=== PATIENT | female | born 1975 | race African-American/Black ===

== ENCOUNTER 2016-06-05 15:44 | Emergency (ER) | payer BC, OTHER ==
[2016-06-05 16:00] VITALS: TEMP 98.2; BMI 26.6
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
[2016-06-05] MEDS ORDERED: IBUPROFEN 600 MG TABLET (FP) PO ONE ×2 (16:33→17:13)
[2016-06-05] MEDS ORDERED: OXYCODONE/APAP 5/325MG COMBO TABLET PO ONE (16:33)
[2016-06-05] MEDS ORDERED: METHOCARBAMOL 500 MG TABLET PO ONE (16:33)
[2016-06-05] MEDS ORDERED: METHOCARBAMOL 500 MG TABLET ONE (17:13)
[2016-06-05] MEDS ORDERED: OXYCODONE/APAP 5/325MG COMBO TABLET ONE (17:13)
[2016-06-05 20:31] VITALS: BP 133/78; PULSE 85
== END 2016-06-05 20:31 | disposition home or self-care (01) ==
LOC: JER 15:44
DX: S92.355A Nondisplaced fracture of fifth metatarsal bone, left foot, initial encounter for closed fracture (principal); G44.309 Post-traumatic headache, unspecified, not intractable; S09.8XXA Other specified injuries of head, initial encounter; Y04.2XXA Assault by strike against or bumped into by another person, initial encounter; Y93.89 Activity, other specified; Y92.218 Other school as the place of occurrence of the external cause; Y99.0 Civilian activity done for income or pay; W10.8XXA Fall (on) (from) other stairs and steps, initial encounter; I10 Essential (primary) hypertension; E11.9 Type 2 diabetes mellitus without complications; Z79.84 Long term (current) use of oral hypoglycemic drugs; J45.909 Unspecified asthma, uncomplicated; K21.9 Gastro-esophageal reflux disease without esophagitis
CPT/HCPCS: 70450-TC; 72100-TC; 72125-TC; 73523-TC; 73610-TC-LT; 73630-TC-LT; 84703; 99284-25

== ENCOUNTER 2017-01-29 12:11 | Emergency (ER) | payer BC ==
[2017-01-29 12:17] VITALS: BMI 25.0
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
[2017-01-29] MEDS ORDERED: KETOROLAC TROMETHAMINE 30 MG/1 ML VIAL IVPUSH ONE (13:30)
[2017-01-29] MEDS ORDERED: SODIUM CHLORIDE 1,000 ML IV STA (13:30)
[2017-01-29] MEDS ORDERED: MECLIZINE HCL 25 MG TABLET (FP) PO ONE (13:30)
[2017-01-29] MEDS ORDERED: MECLIZINE HCL 25 MG TABLET (FP) ONE (13:53)
[2017-01-29] MEDS ORDERED: KETOROLAC TROMETHAMINE 30 MG/1 ML VIAL ONE (13:54)
[2017-01-29 13:56] LABS: BASOPHIL 1.2 % (0-2.0); EOSINOPHIL 1.1 % (0-4.5); MCH 21.4 pg (25.7-33.7); MCHC 30.6 g/dl (32.0-36.0); MEAN CELL VOLUME 69.9 fl (80-96); MEAN PLT VOLUME 6.6 fl (7.5-11.1); NEUTROPHILS 63.2 % (42.8-82.8); PLATELET COUNT 465 K/MM3 (134-434); RDW 18.2 % (11.6-15.6); WHITE BLOOD COUNT 11.6 K/mm3 (4.0-10.0)
[2017-01-29 14:24] LABS: ANION GAP 7 (8-16); BILIRUBIN,TOTAL 0.6 mg/dL (0.2-1.0); CALCIUM 8.8 mg/dL (8.5-10.1); CO2 27 mmol/L (21-32); CREATININE 0.8 mg/dL (0.55-1.02); GLUCOSE,RANDOM 83 mg/dL (74-106); SGOT/AST 16 U/L (15-37); SGPT/ALT 18 U/L (12-78); TOT PROT 7.8 g/dl (6.4-8.2)
[2017-01-29 14:25] LABS: ALK PHOS 79 U/L (45-117)
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
[2017-01-29 15:34] LABS: ANISOCYTOSIS 1+; HYPOCHROMIA 1+; MACROCYTOSIS FEW; MICROCYTOSIS 1+
[2017-01-29 15:35] LABS: ACANTHOCYTES FEW; OVALOCYTE 1+
[2017-01-29] MEDS ORDERED: diazePAM 5 MG TABLET PO ONE (16:48)
[2017-01-29] MEDS ORDERED: diazePAM 5 MG TABLET ONE (16:54)
[2017-01-29 17:05] LABS: URINE APPEARANCE CLEAR; URINE BILIRUBIN NEGATIVE (NEGATIVE); URINE BLOOD NEGATIVE (NEGATIVE); URINE COLOR STRAW; URINE GLUCOSE (UA) NEGATIVE (NEGATIVE); URINE KETONE NEGATIVE (NEGATIVE); URINE NITRITE NEGATIVE (NEGATIVE); URINE PROTEIN NEGATIVE (NEGATIVE); URINE UROBILINOGEN NEGATIVE mg/dL (0.2-1.0)
[2017-01-29 18:01] LABS: TROPONIN I < 0.02 ng/ml (0.00-0.05)
[2017-01-29 18:02] LABS: CPK 230 IU/L (26-192)
[2017-01-29 18:39] LABS: URINE LEUK ESTERASE Negative (NEGATIVE)
[2017-01-29 18:59] VITALS: BP 129/70; PULSE 78; TEMP 98.5
== END 2017-01-29 19:12 | disposition home or self-care (01) ==
LOC: JER 12:11
PROC: 3E0333Z Introduction of Anti-inflammatory into Peripheral Vein, Percutaneous Approach (ICD-10-PCS; principal; 2017-01-29)
PROC: 3E0337Z Introduction of Electrolytic and Water Balance Substance into Peripheral Vein, Percutaneous Approach (ICD-10-PCS; 2017-01-29)
DX: H81.399 Other peripheral vertigo, unspecified ear (principal); G56.00 Carpal tunnel syndrome, unspecified upper limb; S39.012A Strain of muscle, fascia and tendon of lower back, initial encounter; G89.29 Other chronic pain; I10 Essential (primary) hypertension; E11.9 Type 2 diabetes mellitus without complications; J45.909 Unspecified asthma, uncomplicated; F17.210 Nicotine dependence, cigarettes, uncomplicated; Z79.84 Long term (current) use of oral hypoglycemic drugs; X58.XXXA Exposure to other specified factors, initial encounter; Y93.89 Activity, other specified; Y92.9 Unspecified place or not applicable
CPT/HCPCS: 36415; 70450-TC; 71020-TC; 80053; 81003; 82550; 82553; 84484; 84703; 85025; 87086; 99283-25

== ENCOUNTER 2017-02-11 14:17 | Emergency (ER) | payer BC ==
[2017-02-11 14:34] VITALS: BP 132/88; PULSE 93; TEMP 98.3; BMI 27.6
[2017-02-11] MEDS ORDERED: PHENAZOPYRIDINE HCL 100 MG TABLET (FP) PO ONE (16:36)
[2017-02-11] MEDS ORDERED: PHENAZOPYRIDINE HCL 100 MG TABLET (FP) ONE (16:37)
[2017-02-11 16:43] LABS: URINE APPEARANCE CLOUDY; URINE BILIRUBIN NEGATIVE (NEGATIVE); URINE BLOOD 1+ (NEGATIVE); URINE COLOR YELLOW; URINE GLUCOSE (UA) NEGATIVE (NEGATIVE); URINE KETONE NEGATIVE (NEGATIVE); URINE NITRITE POSITIVE (NEGATIVE); URINE UROBILINOGEN NEGATIVE mg/dL (0.2-1.0)
--- NOTE | 2017-02-11 16:43 | PDOC ---
History of Present Illness - General Chief Complaint: Pain, Acute Stated Complaint: ABD PAIN Time Seen by Provider: 02/11/17 15:58 History Source: Patient Exam Limitations: No Limitations - History of Present Illness Travel History: No Initial Comments: 02/11/17 16:40 41 yr female with c/o lower abd pain and dysuria for 2 days no fever no chills no back pain or vomiting. pt has had this in the past. Pt has DM . Quality: reports: fullness, throbbing Pain Radiation: reports: no radiation Past History - Past Medical History Allergies/Adverse Reactions: Allergies Allergy/AdvReac Type Severity Reaction Status Date / Time No Known Allergies Allergy Verified 02/11/17 14:29 Home Medications: Ambulatory Orders Metformin HCl [Glucophage -] 500 mg PO BID 02/03/13 Lisinopril 10 mg PO DAILY 07/22/15 Fluticasone Propionate [Flovent Diskus] 50 mcg IH DAILY 06/05/16 Diazepam [Valium] 2 mg PO BID PRN #14 tablet MDD 4 mg 01/29/17 Meclizine HCl [Antivert -] 25 mg PO TID PRN #21 tablet 01/29/17 Cephalexin Monohydrate [Keflex -] 500 mg PO BID #14 capsule 02/11/17 Phenazopyridine HCl [Pyridium] 200 mg PO TID #6 tablet 02/11/17 Asthma: Yes COPD: No Diabetes: Yes GI Disorders: Yes (GERD) HTN: Yes - Immunization History Immunization Up to Date: Yes - Suicide/Smoking/Psychosocial Hx Smoking Status: Yes Smoking History: Current every day smoker Have you smoked in the past 12 months: Yes Number of Cigarettes Smoked Daily: 7 Information on smoking cessation initiated: No 'Breaking Loose' booklet given: 02/07/15 Hx Alcohol Use: No Drug/Substance Use Hx: No Substance Use Type: Alcohol Review of Systems - Review of Systems Able to Perform ROS?: Yes Is the patient limited [place]an proficient: Yes : Yes: Symptoms Reported *Physical Exam - Vital Signs Last Vital Signs Temp Pulse Resp BP Pulse Ox 98.3 F 93 H 18 132/88 97 02/11/17 14:29 02/11/17 14:29 02/11/17 14:29 02/11/17 14:29 02/11/17 14:29 - Physical Exam General Appearance: Yes: Nourished, Appropriately Dressed HEENT: positive: EOMI, STONEY Neck: positive: Supple Respiratory/Chest: positive: Lungs Clear, Normal Breath Sounds Cardiovascular: positive: Regular Rhythm, Regular Rate Female Pelvic Exam: positive: other (deferred no vaginal symptoms) Gastrointestinal/Abdominal: positive: Normal Bowel Sounds, Tender (suprapubic area ), Soft Lymphatic: negative: Adenopathy Musculoskeletal: positive: Normal Inspection Extremity: positive: Normal Capillary Refill, Normal Inspection, Normal Range of Motion. negative: Tender Integumentary: positive: Normal Color, Dry, Warm, Other Neurologic: positive: Fully Oriented, Alert, Normal Mood/Affect, Normal Response , Motor Strength 5/5 Medical Decision Making - Medical Decision Making 02/11/17 16:47 cc: 2 days urianry urgency burning and suprapubic discomfort LMP last week neg chills neg vomiting or diarrhea 02/11/17 17:04 urine positive will treat for UTI with keflex 7 days pt is afebrile and understands the dc plan all questions asked and answered. 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
[2017-02-11 16:45] LABS: URINE PROTEIN 2+ (NEGATIVE)
[2017-02-11 16:48] LABS: URINE BACTERIA RARE /hpf (NONE SEEN); URINE MUCUS RARE; URINE RBC 21; URINE WBC 1834; YEAST FEW
[2017-02-11 19:42] LABS: URINE LEUK ESTERASE 3+ (NEGATIVE)
== END 2017-02-11 17:09 | disposition home or self-care (01) ==
LOC: JERFT 14:17
DX: N39.0 Urinary tract infection, site not specified (principal); I10 Essential (primary) hypertension; E11.9 Type 2 diabetes mellitus without complications; Z79.84 Long term (current) use of oral hypoglycemic drugs; J45.909 Unspecified asthma, uncomplicated; K21.9 Gastro-esophageal reflux disease without esophagitis; F17.210 Nicotine dependence, cigarettes, uncomplicated
CPT/HCPCS: 36415; 81003; 81015; 84703; 87086; 87186; 87491; 87591; 99281-25

== ENCOUNTER 2017-07-16 11:16 | Emergency (ER) | payer BC ==
[2017-07-16 11:32] VITALS: BP 138/76; PULSE 96; TEMP 98.7; BMI 29.0
[2017-07-16] MEDS ORDERED: IBUPROFEN 400 MG TABLET (FP) PO ONE ×2 (12:11→12:13)
--- NOTE | 2017-07-16 12:11 | PDOC ---
History of Present Illness - General Chief Complaint: Cold Symptoms Stated Complaint: COLD SYMPTOMS Time Seen by Provider: 07/16/17 11:37 History Source: Patient - History of Present Illness Timing/Duration: reports: yesterday Associated Symptoms: reports: fever/chills, headache, muscle aches. denies: cough, shortness of breath, wheezing Past History - Past Medical History Allergies/Adverse Reactions: Allergies Allergy/AdvReac Type Severity Reaction Status Date / Time No Known Allergies Allergy Verified 07/16/17 11:34 Home Medications: Ambulatory Orders metFORMIN HCL [Glucophage -] 500 mg PO BID 02/03/13 Lisinopril 10 mg PO DAILY 07/22/15 Fluticasone Propionate [Flovent Diskus] 50 mcg IH DAILY 06/05/16 Diazepam [Valium] 2 mg PO BID PRN #14 tablet MDD 4 mg 01/29/17 Meclizine HCl [Antivert -] 25 mg PO TID PRN #21 tablet 01/29/17 Asthma: Yes COPD: No Diabetes: Yes GI Disorders: Yes (GERD) HTN: Yes - Immunization History Immunization Up to Date: Yes - Suicide/Smoking/Psychosocial Hx Smoking Status: Yes Smoking History: Never smoked Have you smoked in the past 12 months: Yes Number of Cigarettes Smoked Daily: 7 Information on smoking cessation initiated: No 'Breaking Loose' booklet given: 02/07/15 Hx Alcohol Use: No Drug/Substance Use Hx: No Substance Use Type: Alcohol Respiratory Specific PMHX - Complaint Specific PMHX Angina: No Bronchitis: Yes Pneumonia: No Pulmonary Embolus: No TB (Tuberculosis): No Review of Systems - Review of Systems Constitutional: Yes: Fever, Malaise HEENTM: No: Ear Pain, Throat Pain Respiratory: No: Cough, Shortness of Breath ABD/GI: No: Diarrhea, Nausea, Vomiting Neurological: Yes: Headache. No: Dizziness *Physical Exam - Vital Signs Last Vital Signs Temp Pulse Resp BP Pulse Ox 98.7 F 96 H 16 138/76 100 07/16/17 11:29 07/16/17 11:29 07/16/17 11:29 07/16/17 11:29 07/16/17 11:29 - Physical Exam General Appearance: Yes: Appropriately Dressed HEENT: positive: Normal Voice Neck: positive: Supple. negative: Lymphadenopathy (R), Lymphadenopathy (L) Respiratory/Chest: positive: Lungs Clear, Normal Breath Sounds. negative: Respiratory Distress Cardiovascular: positive: Regular Rate, S1, S2 Integumentary: positive: Dry, Warm Neurologic: positive: Fully Oriented, Alert, Normal Mood/Affect Medical Decision Making - Medical Decision Making 07/16/17 12:09 42-year-old female, history of hypertension, asthma and diabetes, here with malaise with body aches and low-grade fever that started yesterday. No cough, shortness of breath, headache, dizziness, neck pain, nausea, vomiting or diarrhea. 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 No known sick contacts. Patient appears uncomfortable but stable with unremarkable exam otherwise. Most likely viral syndrome. Rule out influenza 07/16/17 12:46 Flu negative. Dc with supportive tx *DC/Admit/Observation/Transfer Diagnosis at time of Disposition: Viral syndrome - Discharge Dispostion Disposition: HOME Condition at time of disposition: Good - Referrals Referrals: Karina Gomez [Primary Care Provider] - - Patient Instructions Printed Discharge Instructions: DI for Viral Syndrome Additional Instructions: Your flu test was negative. You most likely have a viral illness Rest, drink fluids and take tylenol or motrin for pain - Post Discharge Activity Forms/Work/School Notes: Back to Work
== END 2017-07-16 12:49 | disposition home or self-care (01) ==
LOC: JERFT 11:16
DX: B34.9 Viral infection, unspecified (principal); I10 Essential (primary) hypertension; J45.909 Unspecified asthma, uncomplicated; E11.9 Type 2 diabetes mellitus without complications
CPT/HCPCS: 87804; 99281-25

== ENCOUNTER 2017-12-23 15:02 | Emergency (ER) | payer BC ==
--- NOTE | 2017-12-23 15:12 | PDOC ---
Rapid Medical Evaluation Time Seen by Provider: 12/23/17 15:06 Medical Evaluation: Allergies Allergy/AdvReac Type Severity Reaction Status Date / Time No Known Allergies Allergy Verified 12/23/17 15:06 12/23/17 15:07 Pt presents for chest pain starting one hour ago. States that the pain came out of know where and she is now having tingling in her R hand. Admits to palpitations. States she is supposed to take lisinopril, however she ran out of the medication a month ago. Denies SOB, Difficulty breathing,nausea, and vomiting Exam: RRR, Lungs CTAB Orders: Labs, EKG, CXR Pt to proceed to ED for further evaluation Discharge Disposition - Diagnosis Chest pain - Referrals - Patient Instructions - Post Discharge Activity
[2017-12-23 15:13] VITALS: BMI 30.8
[2017-12-23 15:44] LABS: BASO % 0.8 % (0-2.0); EOS % 1.3 % (0-4.5); HEMATOCRIT 35.9 % (32.4-45.2); LYMPH % 26.6 % (8-40); MCH 21.4 pg (25.7-33.7); MCHC 30.8 g/dl (32.0-36.0); MEAN CELL VOLUME 69.6 fl (80-96); MEAN PLT VOLUME 6.8 fl (7.5-11.1); MONO % 12.4 % (3.8-10.2); NEUT % 58.9 % (42.8-82.8); PLATELET COUNT 512 K/MM3 (134-434); RBC 5.16 M/mm3 (3.60-5.2); RDW 19.2 % (11.6-15.6); WHITE BLOOD COUNT 11.3 K/mm3 (4.0-10.0)
[2017-12-23] MEDS ORDERED: LISINOPRIL 10 MG TABLET (FP) PO ONE (15:51)
[2017-12-23] MEDS ORDERED: LISINOPRIL 5 MG TABLET (FP) ONE (15:55)
[2017-12-23 15:58] LABS: INR 1.02 (0.83-1.09); PROTHROMBIN TIME (PATIENT) 11.5 SEC (9.7-13.0)
--- NOTE | 2017-12-23 15:58 | PDOC ---
History of Present Illness - General Chief Complaint: Chest Pain Stated Complaint: CHEST PAIN /BLOOD PRESSURE Time Seen by Provider: 12/23/17 15:06 History Source: Patient Exam Limitations: Clinical Condition - History of Present Illness Initial Comments: 12/23/17 15:51 Patient with history of hypertension, diabetes and asthma present with complain of midsternal chest pain since an hour ago and feeling of tingling sensation in bilateral hands and feet. Patient taking metformin for diabetes and was supposed to be taking lisinopril for hypertension but has not taken over month due to running out of medication. Patient reported mild palpitation which is improving. Patient denies dizziness, nausea, vomiting, sweats, lightheadedness. Timing/Duration: 1 hour Past History - Past Medical History Allergies/Adverse Reactions: Allergies Allergy/AdvReac Type Severity Reaction Status Date / Time No Known Allergies Allergy Verified 12/23/17 15:06 Home Medications: Ambulatory Orders metFORMIN HCL [Glucophage -] 500 mg PO BID 02/03/13 Fluticasone Propionate [Flovent Diskus] 50 mcg IH DAILY 06/05/16 Ibuprofen 800 mg PO Q8H PRN #20 tablet 12/23/17 Lisinopril [Prinivil] 10 mg PO DAILY 30 Days #30 tablet 12/23/17 Asthma: Yes COPD: No DVT: No Diabetes: Yes GI Disorders: Yes (GERD) HTN: Yes - Immunization History Immunization Up to Date: Yes - Suicide/Smoking/Psychosocial Hx Smoking Status: Yes Smoking History: Current some day smoker Have you smoked in the past 12 months: No Number of Cigarettes Smoked Daily: 7 Information on smoking cessation initiated: Yes 'Breaking Loose' booklet given: 02/07/15 Hx Alcohol Use: No Drug/Substance Use Hx: No Substance Use Type: Alcohol Review of Systems - Review of Systems Able to Perform ROS?: Yes Is the patient limited Urdu proficient: No Constitutional: No: Malaise, Weakness Respiratory: No: Symptoms reported, Shortness of Breath Cardiac (ROS): Yes: Chest Pain (mid sternum), Palpitations. No: Irregular Heart Rate, Lightheadedness, Syncope, Chest Tightness ABD/GI: No: Nausea, Vomiting Neurological: No: Headache, Weakness, Dizziness All Other Systems: Reviewed and Negative *Physical Exam - Vital Signs Last Vital Signs Temp Pulse Resp BP Pulse Ox 98.2 F 77 20 167/77 100 12/23/17 15:09 12/23/17 15:09 12/23/17 15:09 12/23/17 15:09 12/23/17 15:09 - Physical Exam Comments: 12/23/17 15:54 GENERAL: Well developed, well nourished. Awake and alert. No acute distress. HEENT: Normocephalic, atraumatic. PERRLA, EOMI. No conjunctival pallor. Sclera are non- icteric. Moist mucous membranes. Oropharynx is clear. NECK: Supple. Full ROM. No JVD. Carotid pulses 2+ and symmetric, without bruits. No thyromegaly. No lymphadenopathy. CARDIOVASCULAR: Moderate reproducible tenderness to upper sternum and right second intercostal space. Regular rate and rhythm. No murmurs, rubs, or gallops. Distal pulses are 2+ and symmetric. PULMONARY: No evidence of respiratory distress. Lungs clear to auscultation bilaterally. No wheezing, rales or rhonchi. ABDOMINAL: Soft. Non-tender. Non-distended. No rebound or guarding. No organomegaly. Normoactive bowel sounds. SKIN: Warm and dry. Normal capillary refill. No rashes. No jaundice. NEUROLOGICAL: Alert, awake, appropriate. Gait is normal without ataxia. PSYCHIATRIC: Cooperative. Good eye contact. Appropriate mood and affect. General Appearance: Yes: Nourished, Appropriately Dressed. No: Apparent Distress ED Treatment Course - LABORATORY CBC & Chemistry Diagram: 12/23/17 15:24 12/23/17 15:24 - ADDITIONAL ORDERS Additional order review: 12/23/17 15:24 RBC 5.16 MCV 69.6 L MCHC 30.8 L RDW 19.2 H MPV 6.8 L Neutrophils % 58.9 Lymphocytes % 26.6 Monocytes % 12.4 H Eosinophils % 1.3 Basophils % 0.8 Medical Decision Making - Medical Decision Making 12/23/17 15:56 Patient with history of diabetes on metformin, hypertension on lisinopril and asthma presenting with complain of midsternal chest pain since an hour. Patient has been noncompliant with hypertension medication due to running out of meds a month ago. Exam with evidence of acute distress and normal cardiac exam and reproducible sternal chest wall pain. EKG done showing normal sinus rhythm. Cardiac labs sent. Chest x-ray ordered. Lisinopril 10 mg by mouth ordered for blood pressure control. Treat based on lab and imaging results 12/23/17 16:34 tropins negative. CBC/CMP labs with no acute findings. CXR with no acute pathology. will repeat cardiac labs in 3-4hrs and dispo home if negative as symptom likely costochondritis 12/23/17 19:55 repeat tropinins negative. patient up and eating with no symptoms. stable for home discharge with strict follow-up *DC/Admit/Observation/Transfer Diagnosis at time of Disposition: Costochondral chest pain Chest pain Qualifiers: Chest pain type: intercostal pain Qualified Code(s): R07.82 - Intercostal pain Hypertension Qualifiers: Hypertension type: essential hypertension Qualified Code(s): I10 - Essential ( primary) hypertension - Discharge Dispostion Disposition: HOME Condition at time of disposition: Stable Decision to Admit order: No - Prescriptions Prescriptions: Ibuprofen 800 mg PO Q8H PRN #20 tablet PRN Reason: pain Lisinopril [Prinivil] 10 mg PO DAILY 30 Days #30 tablet - Referrals Referrals: Elias Patricio MD [Staff Physician] - - Patient Instructions Printed Discharge Instructions: DI for Atypical Chest Pain, DI for Chest Pain Additional Instructions: Your chest x-ray and labs was negative. Symptoms is likely from muscle pain. Take prescribed medication as needed for pain. Come back to the emergency room if worsening chest pain, sweating, dizziness, shortness of breath or worsening numbness and tingling sensation. Follow-up with referred for reassessment as soon as possible - Post Discharge Activity
[2017-12-23 16:03] LABS: HCG,QUALITATIVE URINE Negative
[2017-12-23 16:06] LABS: ALBUMIN 4.3 g/dl (3.4-5.0); ALK PHOS 100 U/L (45-117); ANION GAP 9 MMOL/L (8-16); BILIRUBIN,TOTAL 0.4 mg/dL (0.2-1); BLOOD UREA NITROGEN 8 mg/dL (7-18); CALCIUM 9.6 mg/dL (8.5-10.1); CHLORIDE 104 mmol/L (98-107); CO2 26 mmol/L (21-32); CREATININE 1.1 mg/dL (0.55-1.3); GLUCOSE,RANDOM 81 mg/dL (74-106); MAGNESIUM 2.2 mg/dL (1.8-2.4); POTASSIUM 4.3 mmol/L (3.5-5.1); SGOT/AST 19 U/L (15-37); SGPT/ALT 23 U/L (13-61); SODIUM 138 mmol/L (136-145); TOT PROT 8.5 g/dl (6.4-8.2)
--- NOTE | 2017-12-23 16:22 | PDOC ---
*Physical Exam - Vital Signs Last Vital Signs Temp Pulse Resp BP Pulse Ox 98.2 F 79 16 131/85 97 12/23/17 15:09 12/23/17 16:01 12/23/17 16:01 12/23/17 16:01 12/23/17 16:01 - Physical Exam General Appearance: Yes: Appropriately Dressed. No: Apparent Distress Heart Score/ECG Review - History History: Slightly suspicious - Electrocardiogram EKG: Normal - Age Age: </= 45 - Risk Factors Risk Factors Heart Score: Yes Hx Diabetes, Yes Positive family hx of cardiac disease Based on the list above the patient has:: 1-2 risk factors - Troponin Troponin: </= normal limit - Score Heart Score - Total: 1 ED Treatment Course - LABORATORY CBC & Chemistry Diagram: 12/23/17 15:24 12/23/17 15:24 - ADDITIONAL ORDERS Additional order review: Laboratory Results 12/23/17 12/23/17 12/23/17 15:39 15:24 15:24 PT with INR INR Sodium 138 Potassium 4.3 Chloride 104 Carbon Dioxide 26 Anion Gap 9 BUN 8 Creatinine 1.1 Creat Clearance w eGFR 53.96 Random Glucose 81 Calcium 9.6 Magnesium 2.2 Total Bilirubin 0.4 AST 19 ALT 23 Alkaline Phosphatase 100 Creatine Kinase 285 H Troponin I < 0.02 Total Protein 8.5 H Albumin 4.3 Urine HCG, Qual Negative 12/23/17 15:24 PT with INR 11.50 INR 1.02 Sodium Potassium Chloride Carbon Dioxide Anion Gap BUN Creatinine Creat Clearance w eGFR Random Glucose Calcium Magnesium Total Bilirubin AST ALT Alkaline Phosphatase Creatine Kinase Troponin I Total Protein Albumin Urine HCG, Qual 12/23/17 15:24 RBC 5.16 MCV 69.6 L MCHC 30.8 L RDW 19.2 H MPV 6.8 L Neutrophils % 58.9 Lymphocytes % 26.6 Monocytes % 12.4 H Eosinophils % 1.3 Basophils % 0.8 - Medications Given in the ED: ED Medications Discontinued Medications Generic Name Dose Route Start Last Admin Trade Name Freq PRN Reason Stop Dose Admin Lisinopril 10 mg 12/23/17 15:51 12/23/17 16:02 Prinivil PO 12/23/17 15:52 10 mg ONCE ONE Administration Medical Decision Making - Medical Decision Making 12/23/17 16:21 42F with low risk atypical chest pain r/o acs, pna, PE less likely PERC negative will not pursue PE workup f/u labs including troponin Troponin neg x1 If neg x2 dc home with routine follow up 12/23/17 18:03 *DC/Admit/Observation/Transfer Diagnosis at time of Disposition: Costochondral chest pain Chest pain Qualifiers: Chest pain type: intercostal pain Qualified Code(s): R07.82 - Intercostal pain Hypertension Qualifiers: Hypertension type: essential hypertension Qualified Code(s): I10 - Essential ( primary) hypertension - Discharge Dispostion Disposition: HOME Condition at time of disposition: Stable - Referrals - Patient Instructions Printed Discharge Instructions: DI for Atypical Chest Pain, DI for Chest Pain - Post Discharge Activity
[2017-12-23 16:55] LABS: URINE APPEARANCE CLEAR; URINE BILIRUBIN NEGATIVE (<2.0 mg/dL); URINE COLOR COLORLESS; URINE GLUCOSE (UA) NEGATIVE (NEGATIVE); URINE KETONE NEGATIVE (NEGATIVE); URINE LEUK ESTERASE NEGATIVE (NEGATIVE); URINE NITRITE NEGATIVE (NEGATIVE); URINE PROTEIN NEGATIVE (NEGATIVE); URINE UROBILINOGEN NEGATIVE mg/dL (0.2-1.0)
[2017-12-23 18:32] VITALS: BP 128/93; PULSE 83; TEMP 98.9
[2017-12-23 20:35] LABS: ANISOCYTOSIS 3+
--- NOTE | 2017-12-24 11:41 | EKG ---
Test Reason : Blood Pressure : / mmHG Vent. Rate : 067 BPM Atrial Rate : 067 BPM P-R Int : 132 ms QRS Dur : 084 ms QT Int : 350 ms P-R-T Axes : 040 068 054 degrees QTc Int : 369 ms NORMAL SINUS RHYTHM CANNOT RULE OUT ANTERIOR INFARCT , AGE UNDETERMINED ABNORMAL ECG WHEN COMPARED WITH ECG OF 23-JUN-2013 19:16, T WAVE INVERSION NO LONGER EVIDENT IN INFERIOR LEADS Confirmed by LISSET CAMPBELL, CHRISTIE ([id number]) on 12/24/2017 11:41:41 AM Referred By: Confirmed By:CHRISTIE DARLING MD
== END 2017-12-23 20:01 | disposition home or self-care (01) ==
LOC: JER 15:02
DX: R07.82 Intercostal pain (principal); I10 Essential (primary) hypertension; E11.9 Type 2 diabetes mellitus without complications; Z79.84 Long term (current) use of oral hypoglycemic drugs; J45.909 Unspecified asthma, uncomplicated
CPT/HCPCS: 36415; 71046-TC-FY; 80053; 81003; 82550; 82553; 83735; 84484; 84703; 85025; 85610; 93005; 93010; 99285-25

== ENCOUNTER 2018-02-03 11:28 | Emergency (ER) | payer BC ==
[2018-02-03 11:58] VITALS: BP 108/62; PULSE 94; TEMP 98.6; BMI 28.7
[2018-02-03] MEDS ORDERED: DEXAMETHASONE LIQUID 0.5 MG/5 ML 240 ML BULK BOTTLE PO ONE (12:51)
[2018-02-03] MEDS: ALBUTEROL SO4 2.5/IPRATROPIUM 0.5 INH SOL 3 ML VIAL.NEB. NEB SCH ×2 (12:52→13:25)
[2018-02-03] MEDS ORDERED: DEXAMETHASONE SOD PHOSPHATE 10 MG/1 ML VIAL ONE (12:53)
[2018-02-03] MEDS ORDERED: ALBUTEROL SO4 2.5/IPRATROPIUM 0.5 INH SOL 3 ML VIAL.NEB. NEB ONE (12:53)
--- NOTE | 2018-02-03 13:18 | PDOC ---
History of Present Illness - General Chief Complaint: Shortness of Breath Stated Complaint: DIFFICULTY BREATHING Time Seen by Provider: 02/03/18 12:43 - History of Present Illness Initial Comments: 02/03/18 13:14 42-year-old female with a past medical history significant for diabetes and hypertension presents for shortness of breath 2 days she feels is an exacerbation of her asthma and lower back pain without radicular symptoms saddle paresthesias or loss of bowel or bladder function Past History - Past Medical History Allergies/Adverse Reactions: Allergies Allergy/AdvReac Type Severity Reaction Status Date / Time No Known Allergies Allergy Verified 02/03/18 11:59 Home Medications: Ambulatory Orders metFORMIN HCL [Glucophage -] 500 mg PO BID 02/03/13 Fluticasone Propionate [Flovent Diskus] 50 mcg IH DAILY 06/05/16 Ibuprofen 800 mg PO Q8H PRN #20 tablet 12/23/17 Lisinopril [Prinivil] 10 mg PO DAILY 30 Days #30 tablet 12/23/17 Albuterol Sulfate Inhaler - [Ventolin HFA Inhaler -] 1 - 2 inh PO Q4H #1 inhaler 02/03/18 Asthma: Yes COPD: No DVT: No Diabetes: Yes GI Disorders: Yes (GERD) HTN: Yes - Immunization History Immunization Up to Date: Yes - Suicide/Smoking/Psychosocial Hx Smoking Status: Yes Smoking History: Current every day smoker Have you smoked in the past 12 months: No Number of Cigarettes Smoked Daily: 10 Information on smoking cessation initiated: No 'Breaking Loose' booklet given: 02/07/15 Hx Alcohol Use: No Drug/Substance Use Hx: No Substance Use Type: Alcohol Review of Systems - Review of Systems Constitutional: No: Chills, Diaphoresis, Fever, Malaise, Night Sweats, Weakness HEENTM: No: Throat Swelling Respiratory: Yes: Cough, Shortness of Breath. No: Wheezing Cardiac (ROS): No: Chest Pain, Chest Tightness Musculoskeletal: Yes: Back Pain All Other Systems: Reviewed and Negative *Physical Exam - Vital Signs Last Vital Signs Temp Pulse Resp BP Pulse Ox 98.6 F 94 H 18 108/62 99 02/03/18 11:56 02/03/18 11:56 02/03/18 11:56 02/03/18 11:56 02/03/18 11:56 - Physical Exam Comments: 02/03/18 13:15 HEAD: NC/AT EYES: Conjuntiva clear Ears: Canals and TM's normal NOSE: No d/c THROAT: Moist mucous membrances, oral pharanx clear, uvula midline NECK: Supple without adenopathy CARDIAC: S1 S2 LUNGS: CTA breaths are shallow ABDOMEN: Soft NT ND MS: Full ROM in all joints without edema NEUROLOGIC: No gross sensory or motor deficits, NVID SKIN: Normal color and temperature no lesions or rashes Lumbar spine skin color and temperature are normal range of motion is slightly decreased secondary to pain and discomfort no midline tenderness mild right and left paralumbar musculature spasm 5 out of 5 strength in bilateral lower extremities without gross sensorimotor deficits negative straight leg raise test bilaterally thighs and calves are soft and nontender she is neurovascularly intact ED Treatment Course - Medications Given in the ED: ED Medications Discontinued Medications Generic Name Dose Route Start Last Admin Trade Name Waqasq PRN Reason Stop Dose Admin Dexamethasone 10 mg 02/03/18 12:51 02/03/18 12:52 Decadron Liquid - PO 02/03/18 12:52 10 mg ONCE ONE Administration *DC/Admit/Observation/Transfer Diagnosis at time of Disposition: Back pain, Asthma exacerbation - Discharge Dispostion Disposition: HOME Condition at time of disposition: Improved Decision to Admit order: No - Prescriptions Prescriptions: Albuterol Sulfate Inhaler - [Ventolin HFA Inhaler -] 1 - 2 inh PO Q4H #1 inhaler - Referrals Referrals: Ace Larsen MD [Staff Physician] - Preston Negron MD [Staff Physician] - - Patient Instructions Printed Discharge Instructions: Low Back Pain, DI for Low Back Pain, Asthma -- Adult, DI for Asthma -- Adult Additional Instructions: Return to the emergency room should symptoms worsen or go unresolved. Please follow-up with spine surgery and pulmonology the next 2-3 days for further evaluation and treatment options. Remember you're given a dose of steroids in the emergency room which will raise her blood sugar for the next few days please adjust her medication and diet accordingly. And remember Ventolin inhaler at your pharmacy which was called in for you use that as directed - Post Discharge Activity
--- NOTE | 2018-02-06 13:54 | EKG ---
Test Reason : Blood Pressure : / mmHG Vent. Rate : 088 BPM Atrial Rate : 088 BPM P-R Int : 144 ms QRS Dur : 078 ms QT Int : 346 ms P-R-T Axes : 060 069 052 degrees QTc Int : 418 ms NORMAL SINUS RHYTHM NORMAL ECG WHEN COMPARED WITH ECG OF 23-DEC-2017 15:01, QT HAS LENGTHENED Confirmed by CROW VARGAS MD ([id number]) on 02/06/2018 1:54:17 PM Referred By: Confirmed By:CROW VARGAS MD
== END 2018-02-03 14:11 | disposition home or self-care (01) ==
LOC: JERFT 11:28
PROC: 3E0F7GC Introduction of Other Therapeutic Substance into Respiratory Tract, Via Natural or Artificial Opening (ICD-10-PCS; principal; 2018-02-03)
DX: J45.901 Unspecified asthma with (acute) exacerbation (principal); M54.5 Low back pain; I10 Essential (primary) hypertension; K21.9 Gastro-esophageal reflux disease without esophagitis; E11.9 Type 2 diabetes mellitus without complications; Z79.84 Long term (current) use of oral hypoglycemic drugs
CPT/HCPCS: 93005; 93010; 99281-25

== ENCOUNTER → 2018-08-17 | Emergency (ER) | payer OTHER, BC ==
[~2018-08-17] MED LIST: ACETAMINOPHEN 1000 MG/100 ML VIAL (NON FORMULARY) IVPB ONE; ACETAMINOPHEN INJECTION 100 ML IVPB ONE; ALBUTEROL SO4 2.5/IPRATROPIUM 0.5 INH SOL 3 ML VIAL.NEB. NEB ONE; ALBUTEROL SO4 2.5/IPRATROPIUM 0.5 INH SOL 3 ML VIAL.NEB. NEB SCH; ASPIRIN 81 MG CHEWABLE TABLETS ONE; ASPIRIN 81 MG CHEWABLE TABLETS PO ONE; DEXAMETHASONE LIQUID 0.5 MG/5 ML 240 ML BULK BOTTLE PO ONE; DEXAMETHASONE SOD PHOSPHATE 10 MG/1 ML VIAL ONE; SODIUM CHLORIDE 0.9% 1000 ML INFUS.BAG IV ONE
[2018-08-17 12:25] VITALS: BP 111/71; PULSE 90; TEMP 98.2; BMI 28.7
--- NOTE | 2018-08-17 13:22 | PDOC ---
History of Present Illness - General Chief Complaint: Respiratory Stated Complaint: CHEST PAIN/BACK PAIN Time Seen by Provider: 08/17/18 12:55 - History of Present Illness Initial Comments: 08/17/18 13:16 43-year-old female with a past medical history significant for hypertension diabetes dyslipidemia and asthma presents for evaluation of cough and chest pain which radiates to her right arm over the last 3 days no systemic symptoms Past History - Past Medical History Allergies/Adverse Reactions: Allergies Allergy/AdvReac Type Severity Reaction Status Date / Time No Known Allergies Allergy Verified 08/17/18 12:21 Home Medications: Ambulatory Orders metFORMIN HCL [Glucophage -] 500 mg PO BID 02/03/13 Fluticasone Propionate [Flovent Diskus] 50 mcg IH DAILY 06/05/16 Ibuprofen 800 mg PO Q8H PRN #20 tablet 12/23/17 Lisinopril [Prinivil] 10 mg PO DAILY 30 Days #30 tablet 12/23/17 Albuterol Sulfate Inhaler - [Ventolin HFA Inhaler -] 1 - 2 inh PO Q4H #1 inhaler 02/03/18 Asthma: Yes COPD: No DVT: No Diabetes: Yes GI Disorders: Yes (GERD) HTN: Yes - Immunization History Immunization Up to Date: Yes - Suicide/Smoking/Psychosocial Hx Smoking Status: Yes Smoking History: Current every day smoker Have you smoked in the past 12 months: No Number of Cigarettes Smoked Daily: 10 Information on smoking cessation initiated: No 'Breaking Loose' booklet given: 02/07/15 Hx Alcohol Use: No Drug/Substance Use Hx: No Substance Use Type: Alcohol Review of Systems - Review of Systems Constitutional: No: Fever Respiratory: Yes: Cough Cardiac (ROS): Yes: Chest Pain *Physical Exam - Vital Signs Last Vital Signs Temp Pulse Resp BP Pulse Ox 98.2 F 90 18 111/71 100 08/17/18 12:22 08/17/18 12:22 08/17/18 12:22 08/17/18 12:22 08/17/18 12:22 - Physical Exam Comments: 08/17/18 13:16 HEAD: NC/AT EYES: Conjuntiva clear Ears: Canals and TM's normal NOSE: No d/c THROAT: Moist mucous membrances, oral pharanx clear, uvula midline NECK: Supple without adenopathy CARDIAC: S1 S2 LUNGS: Diffuse wheezing ABDOMEN: Soft NT ND MS: Full ROM in all joints without edema NEUROLOGIC: No gross sensory or motor deficits, NVID SKIN: Normal color and temperature no lesions or rashes ED Treatment Course - RADIOLOGY Radiology Studies Ordered: Category Date Time Status CHEST PA & LAT [RAD] Stat Radiology 08/17/18 13:13 Ordered Medical Decision Making - Medical Decision Making 08/17/18 13:17 I will start this patient on DuoNeb medication give her dose of Decadron for her wheezing and transferred to the main emergency room for further evaluation of her chest pain with right arm radiation *DC/Admit/Observation/Transfer Diagnosis at time of Disposition: Asthma exacerbation, Chest pain - Referrals Referrals: Dayan Clemens MD [Primary Care Provider] - - Patient Instructions - Post Discharge Activity
--- NOTE | 2018-08-17 13:35 | PDOC ---
*Physical Exam - Vital Signs Last Vital Signs Temp Pulse Resp BP Pulse Ox 98.2 F 90 18 111/71 100 08/17/18 12:22 08/17/18 12:22 08/17/18 12:22 08/17/18 12:22 08/17/18 12:22 *DC/Admit/Observation/Transfer Diagnosis at time of Disposition: Asthma exacerbation, Chest pain - Referrals Referrals: Dayan Clemens MD [Primary Care Provider] - - Patient Instructions - Post Discharge Activity
--- NOTE | 2018-08-17 14:20 | PDOC ---
Documentation entered by Ivan Kraft SCRIBE, acting as scribe for Rogers Alfred MD. Rogers Alfred MD: This documentation has been prepared by the Swapnil light Daniel, SCRIBE, under my direction and personally reviewed by me in its entirety. I confirm that the documentation accurately reflects all work, treatment, procedures, and medical decision making performed by me. Attending Attestation - Resident Resident Name: Feng Canales - ED Attending Attestation I have performed the following: I have examined & evaluated the patient, The case was reviewed & discussed with the resident, I agree w/resident's findings & plan, Exceptions are as noted - HPI HPI: 08/17/18 14:17 43y F hx of asthma, htn, chronic smoker, presents with approximately 1 month of mild shortness of breath, cough productive of the yellowish/whitish sputum, associated with approximately 4-5 days of mild chest pain and upper back pain when she coughs. Patient denies any fever, chills, nausea, vomiting, dyspnea exertion abdominal pain, diaphoresis, hemoptysis, leg swelling. Patient denies any significant nasal congestion. 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 GENERAL: The patient is awake, alert, and fully oriented, Nontoxic - in no acute distress. HEAD: Normocephalic, atraumatic. EYES: extraocular movements intact, sclera anicteric, conjunctiva clear. ENT: Normal voice, Moist mucous membranes. NECK: Normal range of motion, supple LUNGS: scattered rhonchi, no acute respiratory distress, no rales HEART: Regular rate and rhythm, normal S1 and S2 without murmur, rub or gallop. ABDOMEN: Soft, nontender, No guarding, no rebound. . No CVA tenderness EXTREMITIES: Normal range of motion, no edema. neg Homans sign no calf tenderness NEUROLOGICAL: No facial assymetry, Normal speech, PSYCH: Normal mood, normal affect. SKIN: Warm, Dry, normal turgor, Differential for this patient's symptoms includes likely URI consider possible undiagnosed COPD as the patient is a chronic smoker Will obtain basic blood work, chest x-ray to rule out pneumonia EKG to screen for ACS based on the patient's symptoms do not suspect PE/ACS. - Physicial Exam PE: 08/17/18 17:39 see above - Medical Decision Making 08/17/18 17:39 pt eloped prior to disposition Heart Score/ECG Review - ECG Impressions Comment:: 08/17/18 14:17 Twelve-lead EKG was performed and reviewed by me. There is normal sinus rhythm with a normal rate. rate of 85 The axis is normal. The intervals are normal. There is normal R wave progression There are no ST or T wave abnormalities. Impression: Normal twelve-lead EKG
--- NOTE | 2018-08-17 14:36 | PDOC ---
History of Present Illness - General Chief Complaint: Respiratory Stated Complaint: CHEST PAIN/BACK PAIN Time Seen by Provider: 08/17/18 12:55 History Source: Patient Exam Limitations: No Limitations - History of Present Illness Initial Comments: 08/17/18 14:21 43F with PMH of HTN, DM, asthma who presents to the ER with multiple complaints. The patient states that she's had 6 days of chest pain and 4 days of back pain when she coughs. She also admits to fevers, sore throat, and myalgias. Her chest pain is L parasternal, nonradiating, and reproducible. The patient also admits to SOB which she states feels like her asthma is worsening. Past History - Past Medical History Allergies/Adverse Reactions: Allergies Allergy/AdvReac Type Severity Reaction Status Date / Time No Known Allergies Allergy Verified 08/17/18 12:21 Home Medications: Ambulatory Orders metFORMIN HCL [Glucophage -] 500 mg PO BID 02/03/13 Fluticasone Propionate [Flovent Diskus] 50 mcg IH DAILY 06/05/16 Ibuprofen 800 mg PO Q8H PRN #20 tablet 12/23/17 Lisinopril [Prinivil] 10 mg PO DAILY 30 Days #30 tablet 12/23/17 Albuterol Sulfate Inhaler - [Ventolin HFA Inhaler -] 1 - 2 inh PO Q4H #1 inhaler 02/03/18 Asthma: Yes COPD: No DVT: No Diabetes: Yes GI Disorders: Yes (GERD) HTN: Yes - Immunization History Immunization Up to Date: Yes - Suicide/Smoking/Psychosocial Hx Smoking Status: Yes Smoking History: Current every day smoker Have you smoked in the past 12 months: No Number of Cigarettes Smoked Daily: 10 Information on smoking cessation initiated: No 'Breaking Loose' booklet given: 02/07/15 Hx Alcohol Use: No Drug/Substance Use Hx: No Substance Use Type: Alcohol Review of Systems - Review of Systems Able to Perform ROS?: Yes Comments:: 08/17/18 14:51 GENERAL/CONSTITUTIONAL: Positive for fevers and chills. No weakness. HEAD, EYES, EARS, NOSE AND THROAT: Positive for sore throat. No change in vision. No ear pain or discharge. CARDIOVASCULAR: Positive for CP. No palpitations or lightheadedness. RESPIRATORY: Positive for cough, wheezing, and shortness of breath. No hemoptysis. GASTROINTESTINAL: No nausea, vomiting, diarrhea, constipation, or abdominal pain. GENITOURINARY: No dysuria, frequency, hematuria, or change in urination. MUSCULOSKELETAL: Positive for myalgias. No neck or back pain. SKIN: No rash or lesions. NEUROLOGIC: Positive for headache. No numbness, tingling, weakness, loss of consciousness, or change in strength/sensation. Is the patient limited Dutch proficient: No *Physical Exam - Vital Signs Last Vital Signs Temp Pulse Resp BP Pulse Ox 98.2 F 90 18 111/71 100 08/17/18 12:22 08/17/18 12:22 08/17/18 12:22 08/17/18 12:22 08/17/18 12:22 - Physical Exam Comments: 08/17/18 14:53 GENERAL: Well developed, well nourished. Awake and alert. No acute distress. HEENT: Normocephalic, atraumatic. Hearing grossly normal. Moist mucous membranes. PERRLA, EOMI. No conjunctival pallor. Sclera are non-icteric. NECK: Supple. Full ROM. No JVD. CARDIOVASCULAR: Regular rate and rhythm. No murmurs, rubs, or gallops. PULMONARY: No evidence of respiratory distress. Diffuse wheezing present. ABDOMINAL: Soft. Non-tender. Non-distended. No rebound or guarding. No organomegaly. Normoactive bowel sounds. GENITOURINARY: No CVA tenderness bilaterally. MUSCULOSKELETAL: Normal range of motion at all joints. No bony deformities or tenderness. EXTREMITIES: No cyanosis. No clubbing. No edema. No calf tenderness or swelling. SKIN: Warm and dry. Normal capillary refill. No rashes. No jaundice. NEUROLOGICAL: Alert, awake, appropriate. Cranial nerves 2-12 grossly intact. Normal speech. Gait is normal without ataxia. PSYCHIATRIC: Cooperative. Good eye contact. Appropriate mood and affect. Medical Decision Making - Medical Decision Making 08/17/18 14:56 43F with a PMH of HTN, HLD, DM who presents to the ER with a viral syndrome likely causing an asthma exacerbation. Will treat for asthma exacerbation. EKG unremarkable. Very low likelihood of ACS due to length of time but will definitely r/o w/ troponin. Pending labs. 08/17/18 15:54 Pt eloped. *DC/Admit/Observation/Transfer Diagnosis at time of Disposition: Asthma exacerbation, Chest pain - Discharge Dispostion Disposition: ELOPED Condition at time of disposition: Fair Decision to Admit order: No - Referrals Referrals: Dayan Clemens MD [Primary Care Provider] - - Patient Instructions - Post Discharge Activity
--- NOTE | 2018-08-18 13:45 | EKG ---
Test Reason : Blood Pressure : / mmHG Vent. Rate : 085 BPM Atrial Rate : 085 BPM P-R Int : 148 ms QRS Dur : 086 ms QT Int : 352 ms P-R-T Axes : 020 072 031 degrees QTc Int : 418 ms NORMAL SINUS RHYTHM NORMAL ECG WHEN COMPARED WITH ECG OF 03-FEB-2018 11:37, NO SIGNIFICANT CHANGE WAS FOUND Confirmed by MD Montalvo Daniel ([id number]) on 08/18/2018 1:45:25 PM Referred By: Confirmed By:Ivan Montalvo MD
== END | disposition left against medical advice (07) ==
LOC: JER 11:41 → JERFT 11:41
DX: J45.901 Unspecified asthma with (acute) exacerbation (principal); I10 Essential (primary) hypertension; E78.00 Pure hypercholesterolemia, unspecified; E11.9 Type 2 diabetes mellitus without complications; Z79.84 Long term (current) use of oral hypoglycemic drugs; E78.5 Hyperlipidemia, unspecified
CPT/HCPCS: 93005; 93010; 99281-25

== ENCOUNTER 2019-01-08 09:44 | Emergency (ER) | payer BC, OTHER ==
[2019-01-08 09:49] VITALS: BMI 28.4
[2019-01-08] MEDS ORDERED: predniSONE 20 MG TABLET (UD) PO ONE (09:54)
[2019-01-08] MEDS ORDERED: ALBUTEROL SO4 2.5/IPRATROPIUM 0.5 INH SOL 3 ML VIAL.NEB. NEB ONE ×2 (09:57→10:17)
--- NOTE | 2019-01-08 10:11 | PDOC ---
History of Present Illness - General Chief Complaint: Asthma Stated Complaint: TROUBLE BREATHING/ASTHMA Time Seen by Provider: 01/08/19 09:53 History Source: Patient Exam Limitations: No Limitations - History of Present Illness Initial Comments: 01/08/19 11:13 43 yo F smoker w/ a NIDDM, h/o asthma (never hospitalized/intubated, last attack was 10 mo ago) comes in c/o 2 days of a cough productive of yellow sputum , chest tightness and difficulty breathing. Also with a sore throat and runny nose. No known sick contacts, no recent travel, no rash. No fever/chills, no NVD , no change in appetite, no other complaints today. Pt has been using her albuterol at home without any relief, hence the ED visit. Pt denies h/o prior DVT/PE, no recent surgery, no prolonged period of immobilization, no h/o malignancy, no OCP use, no recent trauma, no calf pain. Past History - Past Medical History Allergies/Adverse Reactions: Allergies Allergy/AdvReac Type Severity Reaction Status Date / Time No Known Allergies Allergy Verified 01/08/19 09:46 Home Medications: Ambulatory Orders metFORMIN HCL [Glucophage -] 500 mg PO BID 02/03/13 Fluticasone Propionate [Flovent Diskus] 50 mcg IH DAILY 06/05/16 Ibuprofen 800 mg PO Q8H PRN #20 tablet 12/23/17 Lisinopril [Prinivil] 10 mg PO DAILY 30 Days #30 tablet 12/23/17 Albuterol Sulfate Inhaler - [Ventolin HFA Inhaler -] 1 - 2 inh PO Q4H #1 inhaler 02/03/18 Asthma: Yes COPD: No DVT: No Diabetes: Yes GI Disorders: Yes (GERD) HTN: Yes - Immunization History Immunization Up to Date: Yes - Psycho Social/Smoking Cessation Hx Smoking Status: Yes Smoking History: Never smoked Have you smoked in the past 12 months: No Number of Cigarettes Smoked Daily: 10 'Breaking Loose' booklet given: 02/07/15 Hx Alcohol Use: No Drug/Substance Use Hx: No Substance Use Type: Alcohol Review of Systems - Review of Systems Able to Perform ROS?: Yes Constitutional: Yes: Malaise. No: Chills, Fever, Night Sweats HEENTM: Yes: Throat Pain. No: Eye Pain, Recent change in vision Respiratory: Yes: Cough, Shortness of Breath Cardiac (ROS): Yes: Chest Tightness. No: Chest Pain, Palpitations ABD/GI: No: Diarrhea, Nausea, Vomiting, Abdominal cramping : No: Dysuria, Hematuria Musculoskeletal: No: Back Pain Integumentary: No: Rash Neurological: No: Headache, Numbness, Dizziness Psychiatric: No: Change in Appetite Endocrine: No: Unexplained Weight Loss *Physical Exam - Vital Signs Last Vital Signs Temp Pulse Resp BP Pulse Ox 98.4 F 102 H 17 150/107 H 95 01/08/19 09:46 01/08/19 09:46 01/08/19 09:46 01/08/19 09:46 01/08/19 09:46 - Physical Exam General Appearance: Yes: Nourished. No: Apparent Distress HEENT: positive: STONEY, Normal ENT Inspection, Normal Voice. negative: Pale Conjunctivae, Scleral Icterus (R), Scleral Icterus (L) Neck: positive: Supple. negative: Decreased range of motion, Tender midline Respiratory/Chest: positive: Respiratory Distress (labored breathing), Accessory Muscle Use, Decreased Breath Sounds (all throughout), Wheezing ( expiratory at bases) Cardiovascular: positive: Regular Rhythm, Regular Rate Gastrointestinal/Abdominal: positive: Normal Bowel Sounds, Soft. negative: Tender Musculoskeletal: positive: Normal Inspection. negative: CVA Tenderness, Decreased Range of Motion Extremity: positive: Normal Capillary Refill, Normal Inspection, Normal Range of Motion. negative: Tender, Pedal Edema Integumentary: positive: Normal Color, Dry. negative: Jaundice, Rash Neurologic: positive: Fully Oriented, Alert, Normal Mood/Affect ED Treatment Course - LABORATORY CBC & Chemistry Diagram: 01/08/19 13:02 01/08/19 13:02 Medical Decision Making - Medical Decision Making 01/08/19 10:19 43 yo F w/ URI and acute asthma exacerbation, will give duonebs, prednisone and reassess 01/08/19 11:19 Pt feels a lot better, no labored breathing, still with chest tightness and wheezing. Repeat vitals ordered. She received 3 duonebs and prednisone so far. 01/08/19 12:17 O2sat 94%, pt started retracting again, will give magnesium sulfate 01/08/19 14:29 Pt feels much better, Lungs CTA without wheezing, slightly tight at upper lobes. Repeat vitals ordered. white count elevated likely from prednisone. CXR normal. 01/08/19 14:31 O2sat 91% as per RN, will repeat with a different machine and give albuterol nebs 01/08/19 16:04 Pt's O2 sat is still not going higher than 94, it briefly went up to 98 and came back down to 91-94%. Will admit to the hospital for status asthmaticus not responding to meds Pt would like to leave against medical advice, Against Medical Advice The patient has requested to leave the hospital against medical advice. I informed the patient of all testing results that have returned so far, what my concerns are and what testing, treatments and likely disposition I am planning ( admission) - my management plan. I discussed the the risks, benefits and alternatives of my management plan, even to the endpoint of serious disability and/or . I believe the patient has the capacity to make this decision independently. I explained to the patient that they could return to the ED at anytime for further care. Discharge - Discharge Information Problems reviewed: Yes Clinical Impression/Diagnosis: Asthma with status asthmaticus Qualifiers: Asthma severity: moderate Asthma persistence: persistent Qualified Code(s): J45.42 - Moderate persistent asthma with status asthmaticus Condition: Fair Disposition: AGAINST MEDICAL ADVICE - Follow up/Referral - Patient Discharge Instructions Patient Printed Discharge Instructions: DI for Asthma -- Adult - Post Discharge Activity
[2019-01-08] MEDS ORDERED: predniSONE 20 MG TABLET (UD) ONE (10:16)
[2019-01-08] MEDS: ALBUTEROL SO4 2.5/IPRATROPIUM 0.5 INH SOL 3 ML VIAL.NEB. NEB SCH ×4 (10:21→11:47)
[2019-01-08] MEDS ORDERED: MAGNESIUM SULF 50% (8.12 MEQ/2 ML-1 GM VIAL) IVPB ONE (12:18)
[2019-01-08] MEDS ORDERED: MAGNESIUM 1GM/D5W - 2 GM/200 ML IVPB IVPB ONE (12:36)
[2019-01-08 13:21] LABS: BASO % 0.5 % (0-2.0); EOS % 0.1 % (0-4.5); HEMATOCRIT 36.3 % (32.4-45.2); HEMOGLOBIN 11.1 GM/dL (10.7-15.3); LYMPH % 4.6 % (8-40); MCH 21.8 pg (25.7-33.7); MCHC 30.6 g/dl (32.0-36.0); MEAN CELL VOLUME 71.4 fl (80-96); MONO % 2.9 % (3.8-10.2); NEUT % 91.9 % (42.8-82.8); PLATELET COUNT 608 K/MM3 (134-434); RBC 5.08 M/mm3 (3.60-5.2); RDW 19.4 % (11.6-15.6); WHITE BLOOD COUNT 16.3 K/mm3 (4.0-10.0)
[2019-01-08 13:54] LABS: ALBUMIN 4.2 g/dl (3.4-5.0); ALK PHOS 93 U/L (45-117); ANION GAP 9 MMOL/L (8-16); BILIRUBIN,TOTAL 0.3 mg/dL (0.2-1); BLOOD UREA NITROGEN 7.2 mg/dL (7-18); CALCIUM 9.4 mg/dL (8.5-10.1); CHLORIDE 106 mmol/L (98-107); CO2 24 mmol/L (21-32); CREATININE 0.9 mg/dL (0.55-1.3); GLUCOSE,RANDOM 133 mg/dL (74-106); MAGNESIUM 2.2 mg/dL (1.8-2.4); POTASSIUM 3.7 mmol/L (3.5-5.1); SGOT/AST 17 U/L (15-37); SGPT/ALT 20 U/L (13-61); SODIUM 139 mmol/L (136-145); TOT PROT 7.9 g/dl (6.4-8.2)
[2019-01-08 15:14] LABS: ANISOCYTOSIS 2+; MACROCYTOSIS 0; PLATELET ESTIMATE INCREASED; TARGET CELLS 1+
[2019-01-08] MEDS ORDERED: ALBUTEROL SO4 0.083% IH SOL 2.5 MG/3 ML VIAL.NEB. NEB PRN (15:17)
[2019-01-08 15:41] VITALS: BP 133/79; PULSE 119; TEMP 98.6
--- NOTE | 2019-01-10 08:27 | EKG ---
Test Reason : Blood Pressure : / mmHG Vent. Rate : 111 BPM Atrial Rate : 111 BPM P-R Int : 152 ms QRS Dur : 080 ms QT Int : 312 ms P-R-T Axes : 049 075 -38 degrees QTc Int : 424 ms SINUS TACHYCARDIA T WAVE ABNORMALITY, CONSIDER INFERIOR ISCHEMIA ABNORMAL ECG WHEN COMPARED WITH ECG OF 17-AUG-2018 11:49, T WAVE INVERSION NOW EVIDENT IN INFERIOR LEADS NONSPECIFIC T WAVE ABNORMALITY NOW EVIDENT IN LATERAL LEADS Confirmed by Kayla Valdivia ([id number]) on 01/10/2019 8:27:12 AM Referred By: Confirmed By:Kayla Valdivia
== END 2019-01-08 16:19 | disposition left against medical advice (07) ==
LOC: JER 09:44
PROC: 3E033GC Introduction of Other Therapeutic Substance into Peripheral Vein, Percutaneous Approach (ICD-10-PCS; principal; 2019-01-08)
PROC: 3E0F7GC Introduction of Other Therapeutic Substance into Respiratory Tract, Via Natural or Artificial Opening (ICD-10-PCS; 2019-01-08)
PROC: 3E0F7GC Introduction of Other Therapeutic Substance into Respiratory Tract, Via Natural or Artificial Opening (ICD-10-PCS; 2019-01-08)
DX: J45.42 Moderate persistent asthma with status asthmaticus (principal); I10 Essential (primary) hypertension; E11.9 Type 2 diabetes mellitus without complications; Z79.84 Long term (current) use of oral hypoglycemic drugs; K21.9 Gastro-esophageal reflux disease without esophagitis
CPT/HCPCS: 36415; 71046-TC-FY; 80053; 82550; 82553; 83735; 84100; 84484; 85025; 93005; 93010; 99283-25

== ENCOUNTER 2019-01-08 20:36 | Emergency (ER) | payer BC, OTHER ==
--- NOTE | 2019-01-08 20:42 | PDOC ---
Rapid Medical Evaluation Chief Complaint: Shortness of Breath Time Seen by Provider: 01/08/19 20:38 Medical Evaluation: Allergies Allergy/AdvReac Type Severity Reaction Status Date / Time No Known Allergies Allergy Verified 01/08/19 09:46 01/08/19 20:40 Pt c/o: continual sob , hx asthma, signed out AMA and instructed to return if s/ s worsen Pt on brief exam: hr 114, 95% RA, coarse bs with scattered wheezing skye Pt ordered for: duoneb, iv Pt to proceed to the ED Discharge Disposition - Diagnosis Asthma exacerbation - Referrals - Patient Instructions - Post Discharge Activity
[2019-01-08 20:43] VITALS: BP 144/87; PULSE 114; TEMP 97.3; BMI 28.7
[2019-01-08] MEDS ORDERED: ALBUTEROL SO4 2.5/IPRATROPIUM 0.5 INH SOL 3 ML VIAL.NEB. NEB ONE (22:13)
[2019-01-08] MEDS: ALBUTEROL SO4 2.5/IPRATROPIUM 0.5 INH SOL 3 ML VIAL.NEB. NEB SCH ×2 (22:23→22:24)
[2019-01-08] MEDS ORDERED: ACETAMINOPHEN 1000 MG/100 ML VIAL (NON FORMULARY) IVPB ONE (22:40)
[2019-01-08] MEDS ORDERED: SODIUM CHLORIDE 1,000 ML IV STA (22:40)
[2019-01-08] MEDS ORDERED: KETOROLAC TROMETHAMINE 30 MG/1 ML VIAL IVPUSH ONE (22:44)
[2019-01-08] MEDS ORDERED: ACETAMINOPHEN INJECTION 100 ML IVPB ONE (22:47)
[2019-01-08] MEDS ORDERED: KETOROLAC TROMETHAMINE 30 MG/1 ML VIAL ONE (22:47)
--- NOTE | 2019-01-08 22:53 | PDOC ---
*Physical Exam - Vital Signs Last Vital Signs Temp Pulse Resp BP Pulse Ox 97.3 F L 114 H 18 144/87 95 01/08/19 20:40 01/08/19 20:40 01/08/19 20:40 01/08/19 20:40 01/08/19 22:21 ED Treatment Course - Medications Given in the ED: ED Medications Discontinued Medications Generic Name Dose Route Start Last Admin Trade Name Freq PRN Reason Stop Dose Admin Albuterol/Ipratropium 1 amp 01/08/19 20:45 01/08/19 22:24 Duoneb - NEB 01/08/19 21:16 Not Given Q15M [facility] Medical Decision Making - Medical Decision Making 01/08/19 22:51 Pt seen by Midlevel Provider under my direct supervision Pt interviewed and examined Ancillary studies reviewed - Agree with plan per ALCIDES Price Discharge - Discharge Information Problems reviewed: Yes Clinical Impression/Diagnosis: URI (upper respiratory infection) Qualifiers: URI type: unspecified viral URI Qualified Code(s): J06.9 - Acute upper respiratory infection, unspecified Condition: Fair Disposition: HOME - Admission No - Additional Discharge Information Prescriptions: Azithromycin [Zithromax 250mg Tablets -] 250 mg PO UTDICT #6 tab - Follow up/Referral - Patient Discharge Instructions Additional Instructions: Rest, drink lots of fluids: Teas, water, soups, Pedialyte Saltwater gargles Steamy showers/seem to face break up mucus Avoid contact with others until fevers and cough resolved Lots of handwashing and good hygiene Continue [id number] medications for symptomatic relief Tylenol or Motrin for fever and pain Followup with private physician in one to 2 days as needed Return to emergency department for worsened symptoms, fevers, dehydration - Post Discharge Activity
--- NOTE | 2019-01-08 23:22 | PDOC ---
History of Present Illness - General Chief Complaint: Shortness of Breath Stated Complaint: REVIST Time Seen by Provider: 01/08/19 20:38 History Source: Patient, Old Records Exam Limitations: No Limitations - History of Present Illness Initial Comments: 01/08/19 23:22 HISTORY OF PRESENT ILLNESS: This is a 43-year-old woman with past medical history of NIDDM, asthma (no history of intubation visits to the emergency department 2-4 times annually for asthma related complaints last time approximately 10 months ago) presents to the emergency department with headache for the past 2 days.. Patient was seen and evaluated earlier today and was found to be in an asthma exacerbation. Patient left AMA at that time but has had a continued headache since returning home. Patient denies any shortness of breath, chest pain, chest tightness. Patient reported sore throat with rhinorrhea earlier but denies at this time. She denies fevers chills, nausea, vomiting. No recent travel or sick contacts. PAST MEDICAL HISTORY: See HPI SURGICAL HISTORY: Denies ALLERGIES: No known drug allergies REVIEW OF SYSTEMS General/Constitutional: Denies fever or chills. Denies weakness, weight change. HEENT: Denies change in vision. Denies ear pain or discharge. Denies sore throat. Cardiovascular: Denies chest pain or shortness of breath. Respiratory: Denies cough, wheezing, or hemoptysis. Gastrointestinal: Denies nausea, vomiting, diarrhea or constipation. Denies rectal bleeding. Genitourinary: Denies dysuria, frequency, or change in urination. Musculoskeletal: Denies joint or muscle swelling or pain. Denies neck or back pain. Skin and breasts: Denies rash or easy bruising. Neurologic: See HPI Psychiatric: Denies depression or anxiety. Endocrine: Denies increased thirst. Denies abnormal weight change. Hematologic/Lymphatic: Denies anemia, easy bleeding, or history of blood clots. Allergic/Immunologic: Denies hives or skin allergy. Denies latex allergy. PHYSICAL EXAM General Appearance: Well-appearing, appropriately dressed. No apparent distress , no intoxication. HEENT: EOMI, PERRLA, normal ENT inspection, normal voice, TMs normal, pharynx normal. No conjunctival pallor. No photophobia, scleral icterus. Neck: Supple. Trachea midline. No tenderness, rigidity, carotid bruit, stridor , lymphadenopathy, or thyromegaly. Respiratory/Chest: Speaking full sentences. Lungs CTAB. No shortness of breath , chest tenderness, respiratory distress, accessory muscle use. No crackles, rales, rhonchi, stridor, wheezing, dullness Cardiovascular: RRR. S1, S2. No JVD, murmur, bradycardia, tachycardia. Vascular Pulses: Dorsalis-Pedis (R): 2+, Dorsalis-Pedis (L): 2+ Gastrointestinal/Abdominal: Normal bowel sounds. Abdomen soft, non-distended. No tenderness or rebound tenderness. No organomegaly, pulsatile mass, guarding, hernia, hepatomegaly, splenomegaly. Lymphatic: No adenopathy, tenderness. Musculoskeletal/Extremities: Normal inspection. FROM of all extremities, normal capillary refill. Pelvis Stable. No CVA tenderness. No tenderness to extremities, pedal edema, swelling, erythema or deformity. Integumentary: Appropriate color, dry, warm. No cyanosis, erythema, jaundice or rash Neurologic: blocking machine tender II-XII intact. Fully oriented, alert. Appropriate mood/affect. Motor strength 5/5. No appreciable EOM palsy, facial droop or sensory deficit. 01/08/19 23:24 Is this a multiple visit Asthma Patient?: No Past History - Past Medical History Allergies/Adverse Reactions: Allergies Allergy/AdvReac Type Severity Reaction Status Date / Time No Known Allergies Allergy Verified 01/08/19 09:46 Home Medications: Ambulatory Orders metFORMIN HCL [Glucophage -] 500 mg PO BID 02/03/13 Lisinopril [Prinivil] 10 mg PO DAILY 30 Days #30 tablet 12/23/17 Azithromycin [Zithromax 250mg Tablets -] 250 mg PO UTDICT #6 tab 01/09/19 Asthma: Yes COPD: No DVT: No Diabetes: Yes GI Disorders: Yes (GERD) HTN: Yes - Immunization History Immunization Up to Date: Yes - Psycho Social/Smoking Cessation Hx Smoking Status: Yes Smoking History: Never smoked Have you smoked in the past 12 months: No Number of Cigarettes Smoked Daily: 10 'Breaking Loose' booklet given: 02/07/15 Hx Alcohol Use: No Drug/Substance Use Hx: No Substance Use Type: Alcohol *Physical Exam - Vital Signs Last Vital Signs Temp Pulse Resp BP Pulse Ox 97.3 F L 114 H 18 144/87 95 01/08/19 20:40 01/08/19 20:40 01/08/19 20:40 01/08/19 20:40 01/08/19 22:21 ED Treatment Course - Medications Given in the ED: ED Medications Discontinued Medications Generic Name Dose Route Start Last Admin Trade Name Chato PRN Reason Stop Dose Admin Acetaminophen 1,000 mg 01/08/19 22:40 01/08/19 22:54 Ofirmev Injection - IVPB 01/08/19 22:41 1,000 mg ONCE ONE Administration Albuterol/Ipratropium 1 amp 01/08/19 20:45 01/08/19 22:24 Duoneb - NEB 01/08/19 21:16 Not Given Q15M MIREYA Ketorolac Tromethamine 30 mg 01/08/19 22:44 01/08/19 22:54 Toradol Injection - IVPUSH 01/08/19 22:45 30 mg ONCE ONE Administration Medical Decision Making - Medical Decision Making 01/08/19 23:25 A/P: 43-year-old woman with 2 days of upper respiratory symptoms Chest x-ray performed earlier today is unremarkable. Patient is a longer experiencing respiratory symptoms but did have upper respiratory infectious presentation I will get a influenza swab. Normal saline 1 L IV bolus Toradol 30 mg IV push Tylenol 1 g IV Reassess 01/09/19 01:04 Patient ambulated throughout the emergency department. Vital signs checked after ambulation and SPO2 noted to be 100%. Patient remains mildly tachycardic at 103 bpm. Patient reports she feels better there is no longer feeling short of breath. We will discharge the patient home with a prescription for azithromycin to be taken. Patient is in agreement with the plan. Discharge - Discharge Information Problems reviewed: Yes Clinical Impression/Diagnosis: URI (upper respiratory infection) Qualifiers: URI type: unspecified viral URI Qualified Code(s): J06.9 - Acute upper respiratory infection, unspecified Condition: Fair Disposition: HOME - Admission No - Additional Discharge Information Prescriptions: Azithromycin [Zithromax 250mg Tablets -] 250 mg PO UTDICT #6 tab - Follow up/Referral - Patient Discharge Instructions Additional Instructions: Rest, drink lots of fluids: Teas, water, soups, Pedialyte Saltwater gargles Steamy showers/seem to face break up mucus Avoid contact with others until fevers and cough resolved Lots of handwashing and good hygiene Continue [id number] medications for symptomatic relief Tylenol or Motrin for fever and pain Followup with private physician in one to 2 days as needed Return to emergency department for worsened symptoms, fevers, dehydration - Post Discharge Activity
== END 2019-01-09 01:16 | disposition home or self-care (01) ==
LOC: JER 20:36
PROC: 3E0337Z Introduction of Electrolytic and Water Balance Substance into Peripheral Vein, Percutaneous Approach (ICD-10-PCS; principal; 2019-01-08)
PROC: 3E033NZ Introduction of Analgesics, Hypnotics, Sedatives into Peripheral Vein, Percutaneous Approach (ICD-10-PCS; 2019-01-08)
PROC: 3E0333Z Introduction of Anti-inflammatory into Peripheral Vein, Percutaneous Approach (ICD-10-PCS; 2019-01-08)
DX: J06.9 Acute upper respiratory infection, unspecified (principal); I10 Essential (primary) hypertension; E11.9 Type 2 diabetes mellitus without complications; Z79.84 Long term (current) use of oral hypoglycemic drugs; J45.909 Unspecified asthma, uncomplicated; K21.9 Gastro-esophageal reflux disease without esophagitis
CPT/HCPCS: 87804; 99282-25; J0131; J7030

== ENCOUNTER 2019-05-03 11:26 | Emergency (ER) | payer BC, OTHER ==
[2019-05-03 11:54] VITALS: BP 117/76; PULSE 89; TEMP 98.6; BMI 29.8
[2019-05-03] MEDS ORDERED: LIDOCAINE 5% TOPICAL PATCH TP ONE (13:18)
[2019-05-03] MEDS ORDERED: KETOROLAC TROMETHAMINE 60 MG/2 ML VIAL IM ONE (13:18)
[2019-05-03] MEDS ORDERED: LIDOCAINE 5% TOPICAL PATCH ONE (13:29)
[2019-05-03] MEDS ORDERED: KETOROLAC TROMETHAMINE 60 MG/2 ML VIAL ONE (13:29)
--- NOTE | 2019-05-03 14:30 | PDOC ---
History of Present Illness - General Chief Complaint: Pain Stated Complaint: COUGHING/LT SHOULDER PAIN Time Seen by Provider: 05/03/19 12:43 History Source: Patient Exam Limitations: No Limitations Past History - Travel Traveled outside of the country in the last 30 days: No Close contact w/someone who was outside of country & ill: No - Past Medical History Allergies/Adverse Reactions: Allergies Allergy/AdvReac Type Severity Reaction Status Date / Time No Known Allergies Allergy Verified 05/03/19 11:54 Home Medications: Ambulatory Orders metFORMIN HCL [Glucophage -] 500 mg PO BID 02/03/13 Lisinopril [Prinivil] 10 mg PO DAILY 30 Days #30 tablet 12/23/17 Azithromycin [Zithromax 250mg Tablets -] 250 mg PO UTDICT #6 tab 01/09/19 Cyclobenzaprine HCl [Flexeril -] 10 mg PO HS #10 tablet 05/03/19 Methylprednisolone [Medrol Dose Jarrell] 4 mg PO ASDIR #21 tablet 05/03/19 Asthma: Yes COPD: No DVT: No Diabetes: Yes GI Disorders: Yes (GERD) HTN: Yes - Immunization History Immunization Up to Date: Yes - Psycho Social/Smoking Cessation Hx Smoking Status: Yes Smoking History: Current every day smoker Have you smoked in the past 12 months: Yes Number of Cigarettes Smoked Daily: 6 Information on smoking cessation initiated: No 'Breaking Loose' booklet given: 02/07/15 Hx Alcohol Use: No Drug/Substance Use Hx: No Substance Use Type: Alcohol Review of Systems - Review of Systems Able to Perform ROS?: Yes Comments:: 05/03/19 17:30 CONSTITUTIONAL: Absent: fever, chills, diaphoresis, generalized weakness, malaise, loss of appetite CARDIOVASCULAR: Absent: chest pain, loss of consciousness, palpitations, irregular heart rate, peripheral edema MUSCULOSKELETAL: Present: Right arm pain absent: myalgia, arthralgia, joint swelling SKIN: Absent: rash, itching, pallor NEUROLOGIC: Absent: headache, focal weakness or paresthesias, dizziness, unsteady gait, seizure, mental status changes, bladder or bowel incontinence PSYCHIATRIC: Absent: anxiety, depression, suicidal or homicidal ideation, hallucinations. Is the patient limited Italian proficient: No *Physical Exam - Vital Signs Last Vital Signs Temp Pulse Resp BP Pulse Ox 98.6 F 89 17 117/76 98 05/03/19 11:51 05/03/19 11:51 05/03/19 11:51 05/03/19 11:51 05/03/19 11:51 - Physical Exam 05/03/19 17:30 GENERAL: The patient is awake, alert, and fully oriented, in no acute distress. HEAD: Normal with no signs of trauma. EYES: Pupils equal, round and reactive to light, extraocular movements intact, sclera anicteric, conjunctiva clear. EXTREMITIES: Tenderness to palpation of the biceps tendon at the right GH joint. Full range of motion of the right arm. Pain with internal and external rotation of the right shoulder. Normal range of motion, no edema. NEUROLOGICAL: Normal speech, normal gait. PSYCH: Normal mood, normal affect. SKIN: Warm, Dry, normal turgor, no rashes or lesions noted. ED Treatment Course - RADIOLOGY Radiology Studies Ordered: Category Date Time Status SPINE-CERVICAL (2-3VIEWS) [RAD] Stat Radiology 05/03/19 13:19 Completed - Medications Given in the ED: ED Medications Discontinued Medications Generic Name Dose Route Start Last Admin Trade Name Freq PRN Reason Stop Dose Admin Ketorolac Tromethamine 60 mg 05/03/19 13:18 05/03/19 13:34 Toradol Injection - IM 05/03/19 13:19 60 mg ONCE ONE Administration Lidocaine 1 patch 05/03/19 13:18 05/03/19 13:34 Lidoderm Patch - TP 05/03/19 13:19 1 patch ONCE ONE Administration Medical Decision Making - Medical Decision Making 05/03/19 17:00 Patient is a 44-year-old female who presents the ER for 5 days of right arm pain. She stated been progressively getting worse over the past 5 days. She is right-hand dominant. She states that the pain goes down her right arm and feels like a shooting pain she states that her hand also gets numb even though she does not have any pain in her wrist. Denies trauma, falling, heavy lifting or pushing. She does states she gets muscle spasms in her low back frequently. A/P: Cervical radiculopathy See exam findings. Negative drop arm test, empty can test. Pain with speeds test. Bicep tendinitis versus cervical radiculopathy given the radicular pain. We will treat with a short course of steroids and Flexeril. X-ray of the neck shows normal disc height Discharge home with orthopedic follow-up. I discussed the physical exam findings, ancillary test results and final diagnoses with the patient. I answered all of the patient's questions. The patient was satisfied with the care received and felt comfortable with the discharge plan and treatment plan. The Patient agrees to follow up with the primary care physician/specialist within 24-72 hours. Return precautions were given. Discharge - Discharge Information Problems reviewed: Yes Clinical Impression/Diagnosis: Arm pain, right Condition: Stable Disposition: HOME - Admission No - Additional Discharge Information Prescriptions: Cyclobenzaprine HCl [Flexeril -] 10 mg PO HS #10 tablet Methylprednisolone [Medrol Dose Jarrell] 4 mg PO ASDIR #21 tablet - Follow up/Referral Referrals: Daniel Delgado MD [Staff Physician] - - Patient Discharge Instructions Patient Printed Discharge Instructions: DI for Arm Pain Additional Instructions: You were evaluated for your arm pain today. Your neck x-ray was normal. You most likely have a pinched nerve in your arm. Please take the muscle relaxers and steroids as directed. Do not drink alcohol or drive after taking his medication as it may make you drowsy. Please follow-up with orthopedics this week. A referral has been provided. Return to the ER for worsening pain, neck pain, inability to move your arm, or if you have any changes in your symptoms. - Post Discharge Activity Work/Back to School Note: Back to Work
[2019-05-03] MEDS ORDERED: LIDOCAINE PATCH REMOVAL MC SCH (22:00)
== END 2019-05-03 14:47 | disposition home or self-care (01) ==
LOC: JERFT 11:26
PROC: 3E0233Z Introduction of Anti-inflammatory into Muscle, Percutaneous Approach (ICD-10-PCS; principal; 2019-05-03)
DX: M79.602 Pain in left arm (principal); I10 Essential (primary) hypertension; E11.9 Type 2 diabetes mellitus without complications; Z79.84 Long term (current) use of oral hypoglycemic drugs; J45.909 Unspecified asthma, uncomplicated; K21.9 Gastro-esophageal reflux disease without esophagitis
CPT/HCPCS: 72040-TC; 99282-25

== ENCOUNTER 2019-12-14 10:41 | Emergency (ER) | payer BC ==
[2019-12-14 10:51] VITALS: BMI 28.2
--- NOTE | 2019-12-14 11:07 | PDOC ---
Rapid Medical Evaluation Chief Complaint: Nausea/Vomiting Time Seen by Provider: 12/14/19 10:55 Medical Evaluation: Allergies Allergy/AdvReac Type Severity Reaction Status Date / Time No Known Allergies Allergy Verified 12/14/19 10:45 Vital Signs Temp Pulse Resp BP Pulse Ox 98.6 F 90 19 156/86 95 12/14/19 10:45 12/14/19 10:45 12/14/19 10:45 12/14/19 10:45 12/14/19 10:45 12/14/19 11:00 I have performed a brief in-person evaluation of this patient The patient presents with a chief complaint of:n/v/d this am. had epigastric pain c/w her "heart burn" last night, since resolved. H/o DM, HTN, asthma, smoker Pertinent physical exam findings:stable and well quinn I have ordered the following:nothing The patient will proceed to the ED for further evaluation Discharge Disposition - Diagnosis Nausea and vomiting Qualifiers: Vomiting type: unspecified Vomiting Intractability: unspecified Qualified C ode(s): R11.2 - Nausea with vomiting, unspecified Diarrhea Qualifiers: Diarrhea type: unspecified type Qualified Code(s): R19.7 - Diarrhea, unspecified - Discharge Dispostion Last Admission D/C Date: 06/19/92 - Referrals - Patient Instructions - Post Discharge Activity
[2019-12-14 12:10] LABS: URINE APPEARANCE CLEAR; URINE BILIRUBIN NEGATIVE (NEGATIVE); URINE COLOR YELLOW; URINE GLUCOSE (UA) NEGATIVE (NEGATIVE); URINE KETONE NEGATIVE (NEGATIVE); URINE LEUK ESTERASE NEGATIVE (NEGATIVE); URINE NITRITE NEGATIVE (NEGATIVE); URINE PROTEIN NEGATIVE (NEGATIVE); URINE UROBILINOGEN 0.2 mg/dL (0.2-1.0)
[2019-12-14 12:13] LABS: HCG,QUALITATIVE URINE Negative
[2019-12-14] MEDS ORDERED: ONDANSETRON 4 MG/2 ML VIAL IVPUSH ONE (12:14)
[2019-12-14] MEDS ORDERED: SODIUM CHLORIDE 1,000 ML IV STA (12:14)
[2019-12-14] MEDS ORDERED: ONDANSETRON *ODT* 4 MG TABLET SL ONE (12:21)
[2019-12-14] MEDS ORDERED: ONDANSETRON *ODT* 4 MG TABLET ONE (12:22)
--- NOTE | 2019-12-14 12:24 | PDOC ---
History of Present Illness - General Chief Complaint: Nausea/Vomiting Stated Complaint: SOB / BODY ACHES/ VOMIT Time Seen by Provider: 12/14/19 10:55 History Source: Patient Exam Limitations: No Limitations - History of Present Illness Initial Comments: 12/14/19 12:24 44-year-old female presents to ED with complaints of nausea vomiting diarrhea for the past 2 days associated with mild dry cough. Patient does smoke cigarettes and has history of asthma but denies any recent travel or recent illness. 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 Timing/Duration: reports: intermittent Quality: reports: mild, burning Abdominal Pain Onset Location: reports: epigastric Pain Radiation: reports: no radiation Activities at Onset: reports: none Aggravating Factors: improves with: None Alleviating Factors: improves with: None Past History - Travel History Traveled outside of the country in the last 30 days: No Close contact w/someone who was outside of country & ill: No - Medical History Allergies/Adverse Reactions: Allergies Allergy/AdvReac Type Severity Reaction Status Date / Time No Known Allergies Allergy Verified 12/14/19 10:45 Home Medications: Ambulatory Orders Ondansetron [Zofran Odt -] 4 mg SL TID PRN #12 od.tablet 12/14/19 metFORMIN HCL [Metformin HCl] 500 mg PO BID 12/14/19 Asthma: Yes COPD: No DVT: No Diabetes: Yes GI Disorders: Yes (GERD) HTN: Yes - Reproductive History Is Patient Now?: No - Immunization History Immunization Up to Date: Yes - Psycho-Social/Smoking History Patient Lives Alone: No Lives with/in: spouse/SO Smoking Status: Yes Smoking History: Current every day smoker Have you smoked in the past 12 months: Yes Number of Cigarettes Smoked Daily: 6 Information on smoking cessation initiated: No 'Breaking Loose' booklet given: 02/07/15 - Substance Abuse Hx (Audit-C & DAST Scrn) How often the patient has a drink containing alcohol: Monthly or less Score: In Men: 4 or > Positive; In Women: 3 or > Positive: 1 Screen Result (Pos requires Nsg. Audit-10AR): Negative In the last yr the pt used illegal drug/Rx for NonMed reason: No Score: Yes response is considered Positive: 0 Screen Result (Positive result requires Nsg. DAST-10): Negative Review of Systems - Review of Systems Able to Perform ROS?: Yes Constitutional: No: Symptoms Reported HEENTM: No: Symptoms Reported Respiratory: Yes: Cough. No: Shortness of Breath, Wheezing Cardiac (ROS): No: Symptoms Reported ABD/GI: Yes: Diarrhea, Nausea, Vomiting, Indigestion : No: Symptoms Reported Musculoskeletal: No: Symptoms Reported Integumentary: No: Symptoms Reported Neurological: No: Symptoms reported *Physical Exam - Vital Signs Last Vital Signs Temp Pulse Resp BP Pulse Ox 98.6 F 90 19 156/86 95 12/14/19 10:45 12/14/19 10:45 12/14/19 10:45 12/14/19 10:45 12/14/19 10:45 - Physical Exam General Appearance: Yes: Nourished, Appropriately Dressed. No: Apparent Dis tress HEENT: negative: Pale Conjunctivae Neck: positive: Supple Respiratory/Chest: positive: Lungs Clear, Normal Breath Sounds. negative: Respiratory Distress, Accessory Muscle Use Cardiovascular: positive: Regular Rhythm, Regular Rate. negative: Murmur Gastrointestinal/Abdominal: positive: Soft, Tenderness Extremity: positive: Normal Inspection, Normal Range of Motion Integumentary: positive: Normal Color, Warm, Moist Neurologic: positive: Motor Strength 5/5 (Ambulatory) ED Treatment Course - LABORATORY CBC & Chemistry Diagram: 12/14/19 13:55 12/14/19 12:14 - ADDITIONAL ORDERS Additional order review: Laboratory Results 12/14/19 11:54 Urine Color Yellow Urine Appearance Clear Urine pH 7.0 Ur Specific Brandon 1.013 Urine Protein Negative Urine Glucose (UA) Negative Urine Ketones Negative Urine Blood Negative Urine Nitrite Negative Urine Bilirubin Negative Urine Urobilinogen 0.2 Ur Leukocyte Esterase Negative Urine HCG, Qual Negative Medical Decision Making - Medical Decision Making 12/14/19 12:27 Chief complaint: Nausea vomiting diarrhea with mild dry cough for the past 2 days. Patient concerned with COVID but otherwise has no complaints Exam: Patient normal physical exam except for mild tenderness to the epigastric region. Plan: Labs, Zofran, urine, COVID swab 12/14/19 15:11 Laboratory Tests 12/14/19 12/14/19 12/14/19 11:54 12:14 13:55 WBC 10.5 H Hgb 12.9 Hct 39.3 RDW 16.7 H MPV 7.4 L Sodium 138 Potassium 5.7 H Chloride 108 H Carbon Dioxide 28 Anion Gap 2 L BUN 6.2 L AST 45 H Lipase 116 Urine Protein Negative Urine Glucose (UA) Negative Urine Ketones Negative Urine Blood Negative Urine Bilirubin Negative Ur Leukocyte Esterase Negative Urine HCG, Qual Negative Chemistry hemolyzed. Will not consider hyperkalemia. Patient states when but after giving Zofran will discharge patient home with Zofran p.o. COVID swab obtained and will contact with results Discharge - Discharge Information Problems reviewed: Yes Clinical Impression/Diagnosis: Nausea and vomiting Qualifiers: Vomiting type: unspecified Vomiting Intractability: unspecified Qualified Code(s): R11.2 - Nausea with vomiting, unspecified Diarrhea Qualifiers: Diarrhea type: unspecified type Qualified Code(s): R19.7 - Diarrhea, unspecified Condition: Improved Disposition: HOME - Additional Discharge Information Prescriptions: Ondansetron [Zofran Odt -] 4 mg SL TID PRN #12 od.tablet PRN Reason: Nausea - Follow up/Referral - Patient Discharge Instructions Patient Printed Discharge Instructions: DI for Nausea -- Adult Additional Instructions: Eat bland food avoid spicy greasy acidy food. You will be notified of your COVID results within the next day or 2. - Post Discharge Activity Work/Back to School Note: Back to Work
[2019-12-14 13:15] LABS: ALBUMIN 3.6 g/dl (3.4-5.0); BILIRUBIN,TOTAL 0.5 mg/dL (0.2-1); BLOOD UREA NITROGEN 6.2 mg/dL (7-18); CALCIUM 8.9 mg/dL (8.5-10.1); CREATININE 0.8 mg/dL (0.55-1.3); POTASSIUM 5.7 mmol/L (3.5-5.1); TOT PROT 7.5 g/dl (6.4-8.2)
[2019-12-14 14:15] LABS: BASO % 0.9 % (0-2.0); EOS % 0.9 % (0-4.5); HEMATOCRIT 39.3 % (32.4-45.2); HEMOGLOBIN 12.9 GM/dL (10.7-15.3); LYMPH % 21.2 % (8-40); MCH 27.7 pg (25.7-33.7); MCHC 32.9 g/dl (32.0-36.0); MEAN CELL VOLUME 84.2 fl (80-96); MEAN PLT VOLUME 7.4 fl (7.5-11.1); MONO % 8.8 % (3.8-10.2); NEUT % 68.2 % (42.8-82.8); PLATELET COUNT 341 K/MM3 (134-434); RBC 4.67 M/mm3 (3.60-5.2); RDW 16.7 % (11.6-15.6); WHITE BLOOD COUNT 10.5 K/mm3 (4.0-10.0)
[2019-12-14 15:26] VITALS: BP 142/75; PULSE 81; TEMP 98.3
== END 2019-12-14 15:26 | disposition home or self-care (01) ==
LOC: JER 10:41
DX: R11.2 Nausea with vomiting, unspecified (principal); R19.7 Diarrhea, unspecified
CPT/HCPCS: 36415; 80053; 81003; 83690; 84703; 85025; 99283-25; Q0162; U0003

== ENCOUNTER 2020-02-21 13:10 | Emergency (ER) | payer BC ==
[2020-02-21 13:18] VITALS: BP 137/95; PULSE 106; BMI 29.0
[2020-02-21] MEDS ORDERED: KETOROLAC TROMETHAMINE 60 MG/2 ML VIAL IM ONE (13:51)
[2020-02-21] MEDS ORDERED: KETOROLAC TROMETHAMINE 30 MG/1 ML VIAL ONE (13:53)
== END 2020-02-21 13:59 | disposition home or self-care (01) ==
LOC: JERFT 13:10
PROC: 3E0233Z Introduction of Anti-inflammatory into Muscle, Percutaneous Approach (ICD-10-PCS; principal; 2020-02-21)
DX: M54.12 Radiculopathy, cervical region (principal)
CPT/HCPCS: 99284-25

== ENCOUNTER 2020-04-19 09:54 | Emergency (ER) | payer BC ==
[2020-04-19 10:27] VITALS: BP 137/90; PULSE 89; TEMP 98.1; BMI 29.0
[2020-04-19 11:51] LABS: EOS % 1.5 % (0-4.5); HEMATOCRIT 33.2 % (32.4-45.2); HEMOGLOBIN 10.8 GM/dL (10.7-15.3); LYMPH % 24.7 % (8-40); MCH 27.8 pg (25.7-33.7); MCHC 32.6 g/dl (32.0-36.0); MEAN CELL VOLUME 85.3 fl (80-96); MONO % 9.9 % (3.8-10.2); NEUT % 62.9 % (42.8-82.8); PLATELET COUNT 406 K/MM3 (134-434); RBC 3.89 M/mm3 (3.60-5.2); RDW 16.8 % (11.6-15.6); WHITE BLOOD COUNT 8.9 K/mm3 (4.0-10.0)
[2020-04-19 11:59] LABS: INR 1.03 (0.83-1.09); PROTHROMBIN TIME (PATIENT) 12.6 SEC (9.7-13.0)
[2020-04-19 12:19] LABS: POTASSIUM 4.3 mmol/L (3.5-5.1)
[2020-04-19 12:21] LABS: CALCIUM 9.2 mg/dL (8.5-10.1)
[2020-04-19 12:22] LABS: ALBUMIN 3.9 g/dl (3.4-5.0); BLOOD UREA NITROGEN 7.6 mg/dL (7-18)
[2020-04-19 12:25] LABS: CREATININE 0.8 mg/dL (0.55-1.3)
[2020-04-19 12:26] LABS: BILIRUBIN,TOTAL 0.5 mg/dL (0.2-1); TOT PROT 7.1 g/dl (6.4-8.2)
== END 2020-04-19 13:23 | disposition home or self-care (01) ==
LOC: JER 09:54
DX: N93.9 Abnormal uterine and vaginal bleeding, unspecified (principal)
CPT/HCPCS: 36415; 80053; 84703; 85025; 85610; 99283-25

== ENCOUNTER 2022-04-18 08:57 | Observation (INO) | payer BC ==
[2022-04-18 10:44] LABS: BASO % 1.1 % (0-2.0); EOS % 1.6 % (0-4.5); HEMATOCRIT 22.5 % (32.4-45.2); LYMPH % 24.6 % (8-40); MCH 21.2 pg (25.7-33.7); MEAN CELL VOLUME 70.6 fl (80-96); MEAN PLT VOLUME 6.3 fl (7.5-11.1); MONO % 8.9 % (3.8-10.2); NEUT % 63.8 % (42.8-82.8); PLATELET COUNT 618 10^3/uL (134-434); RBC 3.18 M/mm3 (3.60-5.2); RDW 19.8 % (11.6-15.6); WHITE BLOOD COUNT 9.4 K/mm3 (4.0-10.0)
[2022-04-18 10:49] LABS: INR 1.02 (0.83-1.09); PROTHROMBIN TIME (PATIENT) 11.7 SEC (9.7-13.0)
[2022-04-18 10:51] LABS: ACTIVATED PTT 28.5 SECONDS (25.2-36.5)
[2022-04-18 10:52] LABS: HEMOGLOBIN 6.7 GM/dL (10.7-15.3)
[2022-04-18 11:03] LABS: ALBUMIN 3.6 g/dl (3.4-5.0); BLOOD UREA NITROGEN 8.4 mg/dL (7-18); CALCIUM 8.6 mg/dL (8.5-10.1)
[2022-04-18 11:06] LABS: CREATININE 0.8 mg/dL (0.55-1.3)
[2022-04-18 11:08] LABS: BILIRUBIN,TOTAL 0.3 mg/dL (0.2-1); TOT PROT 6.7 g/dl (6.4-8.2)
[2022-04-18 11:18] LABS: ANISOCYTOSIS 3+; MACROCYTOSIS 0; OVALOCYTE 1+
[2022-04-18 17:03] VITALS: BMI 27.2
[2022-04-18] MEDS: INSULIN SLIDING SCALE (NOVOLOG) 1 VIAL SQ SCH ×2 (17:12→22:30)
[2022-04-19] MEDS: INSULIN SLIDING SCALE (NOVOLOG) 1 VIAL SQ SCH ×3 (06:58→17:01)
[2022-04-19] MEDS ORDERED: IRON SUCROSE INJECTION 200 MG in SODIUM CHLORIDE 90 ML IVPB ONE ×2 (08:00→09:00)
[2022-04-19] MEDS ORDERED: ACETAMINOPHEN 325 MG TABLET (FP) PO ONE (13:32)
[2022-04-19 14:08] VITALS: BP 147/93; PULSE 97; RESP 18; TEMP 98.2
[2022-04-19 17:01] LABS: EOS % 1.6 % (0-4.5); HEMATOCRIT 30.2 % (32.4-45.2); HEMOGLOBIN 9.5 GM/dL (10.7-15.3); LYMPH % 23.7 % (8-40); MCH 23.7 pg (25.7-33.7); MCHC 31.5 g/dl (32.0-36.0); MEAN CELL VOLUME 75.4 fl (80-96); MEAN PLT VOLUME 6.5 fl (7.5-11.1); MONO % 10.1 % (3.8-10.2); NEUT % 63.6 % (42.8-82.8); PLATELET COUNT 554 10^3/uL (134-434); RBC 4.01 M/mm3 (3.60-5.2); RDW 22.5 % (11.6-15.6)
[2022-04-19 17:28] LABS: ALBUMIN 3.7 g/dl (3.4-5.0); CALCIUM 8.6 mg/dL (8.5-10.1)
[2022-04-19 17:29] LABS: BLOOD UREA NITROGEN 6.7 mg/dL (7-18)
[2022-04-19 17:32] LABS: CREATININE 0.8 mg/dL (0.55-1.3)
[2022-04-19 17:33] LABS: BILIRUBIN,TOTAL 0.5 mg/dL (0.2-1); TOT PROT 6.8 g/dl (6.4-8.2)
== END 2022-04-19 18:35 | disposition home or self-care (01) ==
LOC: JER 08:57 → JERBED 11:18 → J6S 16:43
PROVIDERS: ADMIT Internal Medicine; ATTEND Internal Medicine
PROC: 30233N1 Transfusion of Nonautologous Red Blood Cells into Peripheral Vein, Percutaneous Approach (ICD-10-PCS; principal; 2022-04-18)
PROC: 3E033GC Introduction of Other Therapeutic Substance into Peripheral Vein, Percutaneous Approach (ICD-10-PCS; 2022-04-18)
DX: D50.9 Iron deficiency anemia, unspecified (principal); D21.9 Benign neoplasm of connective and other soft tissue, unspecified; R06.09 Other forms of dyspnea; I10 Essential (primary) hypertension; E11.9 Type 2 diabetes mellitus without complications; E78.5 Hyperlipidemia, unspecified; F17.210 Nicotine dependence, cigarettes, uncomplicated; N92.0 Excessive and frequent menstruation with regular cycle
CPT/HCPCS: 0241U-QW; 36415; 36430; 76830-TC; 80053; 82728; 82962; 83540; 83550; 84703; 85025; 85610; 85730; 86850; 86900; 86901; 86922; 99285-25; G0378; J1756; P9058

== ENCOUNTER 2022-06-24 11:59 | Emergency (ER) | payer BC ==
[2022-06-24 12:25] VITALS: BP 124/95; PULSE 100; RESP 18; TEMP 98.2; BMI 26.6
[2022-06-24] MEDS ORDERED: ALBUTEROL SO4 2.5/IPRATROPIUM 0.5 INH SOL 3 ML VIAL.NEB. NEB ONE ×4 (13:16→13:24)
[2022-06-24] MEDS ORDERED: predniSONE 20 MG TABLET (UD) PO ONE (13:23)
[2022-06-24] MEDS ORDERED: predniSONE 20 MG TABLET (UD) ONE (13:26)
== END 2022-06-24 14:52 | disposition home or self-care (01) ==
LOC: JERFT 11:59
PROC: 3E0F7GC Introduction of Other Therapeutic Substance into Respiratory Tract, Via Natural or Artificial Opening (ICD-10-PCS; principal; 2022-06-24)
DX: J45.909 Unspecified asthma, uncomplicated (principal); Z20.822 Contact with and (suspected) exposure to COVID-19
CPT/HCPCS: 0241U-QW; 71046-TC-FY; 99284-25

== ENCOUNTER 2022-08-14 12:00 | Observation (INO) | payer BC ==
[2022-08-14 12:04] VITALS: BMI 29.0
[2022-08-14] MEDS ORDERED: ALBUTEROL SO4 2.5/IPRATROPIUM 0.5 INH SOL 3 ML VIAL.NEB. NEB ONE ×3 (12:55→17:22)
[2022-08-14] MEDS ORDERED: methylPREDNISolone NA SUCC 125 MG/2 ML VIAL IVPUSH ONE (12:56)
[2022-08-14] MEDS ORDERED: methylPREDNISolone NA SUCC 125 MG/2 ML VIAL ONE (13:01)
[2022-08-14] MEDS ORDERED: MAGNESIUM SULF 50% (8.12 MEQ/2 ML-1 GM VIAL) IVPB ONE (15:08)
[2022-08-14] MEDS ORDERED: ALBUTEROL SO4 0.083% IH SOL 2.5 MG/3 ML VIAL.NEB. NEB ONE ×2 (15:08→15:41)
[2022-08-14] MEDS ORDERED: AMOX TR/POT CLAV 875MG/125MG TABLETS (FP) PO ONE (15:11)
[2022-08-14] MEDS ORDERED: AMOX TR/POT CLAV 875MG/125MG TABLETS (FP) ONE (15:40)
[2022-08-14] MEDS ORDERED: MAGNESIUM SULFATE IN WATER 2 GM/50 ML IVPB IVPB ONE (15:41)
[2022-08-14 16:41] LABS: BASO % 0.6 % (0-2.0); EOS % 0.1 % (0-4.5); HEMATOCRIT 28.7 % (32.4-45.2); HEMOGLOBIN 8.6 GM/dL (10.7-15.3); LYMPH % 8.7 % (8-40); MCHC 30.1 g/dl (32.0-36.0); MEAN CELL VOLUME 62.4 fl (80-96); MEAN PLT VOLUME 6.5 fl (7.5-11.1); MONO % 2.8 % (3.8-10.2); NEUT % 87.8 % (42.8-82.8); PLATELET COUNT 599 10^3/uL (134-434); RBC 4.59 M/mm3 (3.60-5.2)
[2022-08-14 16:44] LABS: MCH 18.8 pg (25.7-33.7)
[2022-08-14 16:52] LABS: POTASSIUM 4.1 mmol/L (3.5-5.1)
[2022-08-14 16:53] LABS: CALCIUM 8.7 mg/dL (8.5-10.1)
[2022-08-14 16:54] LABS: BLOOD UREA NITROGEN 7.5 mg/dL (7-18)
[2022-08-14 16:57] LABS: CREATININE 0.9 mg/dL (0.55-1.3)
[2022-08-14] MEDS ORDERED: AZITHROMYCIN IVPB 500 MG/250 ML BAG IVPB ONE (17:22)
[2022-08-14] MEDS: ALBUTEROL SO4 2.5/IPRATROPIUM 0.5 INH SOL 3 ML VIAL.NEB. NEB SCH ×2 (17:30→20:57)
[2022-08-14] MEDS: AZITHROMYCIN IVPB 500 MG/250 ML BAG IVPB SCH (17:30)
[2022-08-14 19:06] LABS: ANISOCYTOSIS 1+; MACROCYTOSIS 0
[2022-08-15] MEDS: ALBUTEROL SO4 2.5/IPRATROPIUM 0.5 INH SOL 3 ML VIAL.NEB. NEB SCH ×5 (00:49→15:25)
[2022-08-15 04:56] VITALS: RESP 18
[2022-08-15] MEDS: IRON SUCROSE INJECTION 100 MG in SODIUM CHLORIDE 95 ML IVPB ONE ×2 (09:51→09:55)
[2022-08-15] MEDS: AZITHROMYCIN IVPB 500 MG/250 ML BAG IVPB SCH (09:57)
[2022-08-15] MEDS ORDERED: predniSONE 20 MG TABLET (UD) PO SCH ×2 (10:00→22:00)
[2022-08-15] MEDS ORDERED: BUDESONIDE/FORMETEROL FUMARATE 160/4.5 mcg INHALER IH SCH (11:30)
[2022-08-15] MEDS ORDERED: ACETAMINOPHEN 325 MG TABLET (FP) PO PRN (12:11)
[2022-08-15] MEDS ORDERED: FERROUS SO4 325 MG TABLET (FP) PO SCH (12:45)
[2022-08-15 13:06] VITALS: PULSE 97
[2022-08-15 14:20] VITALS: BP 140/89; TEMP 97.6
[2022-08-15] MEDS ORDERED: methylPREDNISolone NA SUCC 125 MG/2 ML VIAL IVPUSH SCH (22:00)
[2022-08-16] MEDS ORDERED: DOCUSATE SODIUM 100 MG CAPSULE (FP) PO SCH (10:00)
== END 2022-08-15 15:30 | disposition home or self-care (01) ==
LOC: JER 12:00 → JERBED 15:15 → J6S 19:31
PROVIDERS: ADMIT Internal Medicine; ATTEND Internal Medicine
PROC: 3E0F7GC Introduction of Other Therapeutic Substance into Respiratory Tract, Via Natural or Artificial Opening (ICD-10-PCS; principal; 2022-08-14)
PROC: 3E03329 Introduction of Other Anti-infective into Peripheral Vein, Percutaneous Approach (ICD-10-PCS; 2022-08-14)
PROC: 3E033GC Introduction of Other Therapeutic Substance into Peripheral Vein, Percutaneous Approach (ICD-10-PCS; 2022-08-14)
DX: J45.909 Unspecified asthma, uncomplicated (principal); F17.210 Nicotine dependence, cigarettes, uncomplicated
CPT/HCPCS: 0241U-QW; 36415; 71046-TC-FY; 80048; 84703; 85025; 93005; 93010; 94640; 99285-25; G0378; J1756

== ENCOUNTER 2023-05-01 11:54 | Emergency (ER) | payer BC ==
[2023-05-01 12:12] VITALS: RESP 18; BMI 26.6
[2023-05-01] MEDS ORDERED: ACETAMINOPHEN 1000 MG/100 ML BAG IVPB ONE (13:51)
[2023-05-01] MEDS ORDERED: METOCLOPRAMIDE HCL INJECTION 10 MG/2 ML VIAL IVPB ONE (13:51)
[2023-05-01] MEDS ORDERED: SODIUM CHLORIDE 0.9% 500 ML INFUS.BAG IV ONE (13:51)
[2023-05-01] MEDS ORDERED: METOCLOPRAMIDE HCL INJECTION 10 MG/2 ML VIAL ONE (13:59)
[2023-05-01] MEDS ORDERED: ACETAMINOPHEN INJECTION 100 ML IVPB ONE (14:00)
[2023-05-01 15:53] VITALS: BP 155/95; PULSE 80; TEMP 97.7
== END 2023-05-01 15:53 | disposition home or self-care (01) ==
LOC: JER 11:54
PROC: 3E033NZ Introduction of Analgesics, Hypnotics, Sedatives into Peripheral Vein, Percutaneous Approach (ICD-10-PCS; principal; 2023-05-01)
PROC: 3E033GC Introduction of Other Therapeutic Substance into Peripheral Vein, Percutaneous Approach (ICD-10-PCS; 2023-05-01)
DX: R51.9 Headache, unspecified (principal); R05.9 Cough, unspecified; Z20.822 Contact with and (suspected) exposure to COVID-19
CPT/HCPCS: 0241U-QW; 99284-25; J0131